=== PATIENT | female | born 1990 | race Caucasian/White ===

== ENCOUNTER 2016-03-26 14:33 | Inpatient (IN) | payer OTHER ==
[2016-03-26] MEDS ORDERED: PANTOPRAZOLE 40 MG/10 ML VIAL IVP STA (14:56)
[2016-03-26] MEDS ORDERED: SODIUM CHLORIDE 0.9% 500 ML IV STA (14:56)
--- NOTE | 2016-03-26 15:01 | ED ---
General Adult HPI - General Chief complaint: Abdominal Pain Stated complaint: abdominal & back pain/racing heart Time Seen by Provider: 03/26/16 14:47 Source: patient, family, RN notes reviewed Mode of arrival: ambulatory Limitations: no limitations - History of Present Illness Initial comments: If complaint and history of present illness a 26-year-old female complaining of epigastric pain goes through to the back. It started last night no nausea vomiting or diarrhea. Tums has not helped up-to-date. No real relationship to eating foods the pain can come with or without food. Denies noticing any change in color of her stool. No alcohol use. - Related Data Home Medications Medication Instructions Recorded Confirmed Cold Med (Unknown) 2 cap PO Q8H PRN 03/26/16 03/26/16 predniSONE 20 mg PO DAILY 03/26/16 03/26/16 Allergies Allergy/AdvReac Type Severity Reaction Status Date / Time ketorolac [From Toradol] Allergy Unknown Verified 03/26/16 15:31 Review of Systems ROS Statement: Those systems with pertinent positive or pertinent negative responses have been documented in the HPI. Review of systems; no complaint of visual acuity changes or headache no steak stiff neck or neck pain. No chest pain or shortness of breath. She has epigastric discomfort stays there and goes more to the left upper quadrant as well as through to the back. No neuro deficits. All systems are reviewed. Past medical problems none. Surgeries tonsils and adenoids 2 C-sections. Family history mother had MS and pancreatitis. Cancers include a grandmother with breast cancer. The patient has ALLERGIES to ketorolac. She states she can take ibuprofen and other nonsteroidals. Denies smoking drinks alcohol occasionally socially. Works as a medical insurance biller. Denies injury. ROS Other: All systems not noted in ROS Statement are negative. Past Medical History Past Medical History: No Reported History History of Any Multi-Drug Resistant Organisms: None Reported Past Surgical History: Section Past Psychological History: No Psychological Hx Reported Smoking Status: Never smoker Past Alcohol Use History: None Reported Past Drug Use History: None Reported General Exam - General Exam Comments Initial Comments: General: The patient is awake and alert, complaining of epigastric pain goes to the back. Occasionally runs around the left side as well. No nausea no vomiting no change in stool no diarrhea. No significant increase in gas. Eye: Pupils are equal, round and reactive to light, extra-ocular movements are intact ; there is normal conjunctiva bilaterally. No signs of icterus. Ears, nose, mouth and throat: There are moist mucous membranes and no oral lesions. Neck: The neck is supple, there is no tenderness , no anterior cervical lymphadenopathy. Cardiovascular: There is a regular rate and rhythm. No murmur, rub or gallop is appreciated. Respiratory: Lungs are clear to auscultation, respirations are non-labored, breath sounds are equal. No wheezes, stridor, rales, or rhonchi. Gastrointestinal: Tender with palpation of the epigastric region. And to the left upper quadrant.. Back: There is no tenderness to palpation in the midline. There is no obvious deformity. No rashes noted. Musculoskeletal: Normal ROM, no tenderness, There is no pedal edema. There is no calf tenderness or swelling. Sensation intact. Neurological: No complaint of or notice of any neuro deficits. Skin: Skin is warm and dry and no rashes or lesions are noted. Limitations: no limitations Course Vital Signs 03/26/16 14:36 Temperature 98.5 F Pulse Rate 74 Respiratory 18 Rate Blood Pressure 146/90 O2 Sat by Pulse 99 Oximetry Medical Decision Making - Medical Decision Making making patient white count 14.5 hemoglobin 11 hematocrit 37.9 amylase lipase normal. Urine no signs of infection test negative. Her potassium is 4.2 with a BUN of 13 creatinine 0.65 the GFR greater than 60. Glucose 76. X-rays of the abdomen were done and reviewed by radiologist findings are a gas is seen and nondistended stomach. Scattered gas is seen in nondistended small bowel loops. Small bowel loops in the left midabdomen may have normal wall thickening consider enteritis at this level. Gas and fecal material is seen in the nondistended colon. There is no visceromegaly. No pneumoperitoneum, or abnormal calcifications appreciated. The lung bases are clear and the osseous structures are intact. Impression; overall nonobstructive bowel gas pattern. Possible left-sided enteritis. Clinical correlation advised. As read by Dr. dunn Reexamination finds the patient with discomfort in epigastric region but no guarding. The patient will have a CT with IV contrast. Radiologist reviewed the CT and his evaluation is evaluation bowel is suboptimal due to lack of enteric contrast. There is no suspicious small or large bowel dilatation identified. Impression no significant acute finding is seen to account for the patient's clinical symptoms. As read by Dr. dunn Is still having epigastric pain that goes through to the back. No specific finding by x-ray or CAT scan or labs. Suspicious for potential gallbladder issues. The patient will be admitted On a clear liquid diet with ultrasound in the morning. Will be admitted to the hospitalist with the general surgical consultation if deemed necessary. - Lab Data Result diagrams: 03/26/16 15:12 03/26/16 15:12 Lab Results 03/26/16 03/26/16 03/26/16 Range/Units 15:12 15:12 15:12 WBC 14.5 H (3.8-10.6) k/uL RBC 4.63 (3.80-5.40) m/uL Hgb 11.4 (11.4-16.0) gm/dL Hct 37.9 (34.0-46.0) % MCV 81.9 (80.0-100.0) fL MCH 24.6 L (25.0-35.0) pg MCHC 30.1 L (31.0-37.0) g/dL RDW 14.1 (11.5-15.5) % Plt Count 436 (150-450) k/uL Neutrophils % 61 % Lymphocytes % 31 % Monocytes % 5 % Eosinophils % 1 % Basophils % 1 % Neutrophils # 8.9 H (1.3-7.7) k/uL Lymphocytes # 4.5 (1.0-4.8) k/uL Monocytes # 0.8 (0-1.0) k/uL Eosinophils # 0.1 (0-0.7) k/uL Basophils # 0.1 (0-0.2) k/uL Sodium 144 (137-145) mmol/L Potassium 4.2 (3.5-5.1) mmol/L Chloride 103 (98-107) mmol/L Carbon Dioxide 29 (22-30) mmol/L Anion Gap 12 mmol/L BUN 13 (7-17) mg/dL Creatinine 0.65 (0.52-1.04) mg/dL Est GFR (MDRD) Af Amer >60 (>60 ml/min/1.73 sqM) Est GFR (MDRD) Non-Af >60 (>60 ml/min/1.73 sqM) Glucose 76 (74-99) mg/dL Plasma Lactic Acid Fernie 1.3 (0.7-2.0) mmol/L Calcium 10.0 (8.4-10.2) mg/dL Total Bilirubin 0.3 (0.2-1.3) mg/dL AST 41 H (14-36) U/L ALT 40 (9-52) U/L Alkaline Phosphatase 62 (38-126) U/L Total Protein 7.7 (6.3-8.2) g/dL Albumin 4.5 (3.5-5.0) g/dL Amylase 56 (30-110) U/L Lipase 156 (23-300) U/L Urine Color Urine Appearance (Clear) Urine pH (5.0-8.0) Ur Specific Abie (1.001-1.035) Urine Protein (Negative) Urine Glucose (UA) (Negative) Urine Ketones (Negative) Urine Blood (Negative) Urine Nitrate (Negative) Urine Bilirubin (Negative) Urine Urobilinogen (<2.0) mg/dL Ur Leukocyte Esterase (Negative) Urine RBC (0-5) /hpf Urine WBC (0-5) /hpf Ur Squamous Epith Cells (0-4) /hpf Urine Mucus (None) /hpf Urine HCG, Qual (Not Detectd) 03/26/16 03/26/16 Range/Units 15:14 15:14 WBC (3.8-10.6) k/uL RBC (3.80-5.40) m/uL Hgb (11.4-16.0) gm/dL Hct (34.0-46.0) % MCV (80.0-100.0) fL MCH (25.0-35.0) pg MCHC (31.0-37.0) g/dL RDW (11.5-15.5) % Plt Count (150-450) k/uL Neutrophils % % Lymphocytes % % Monocytes % % Eosinophils % % Basophils % % Neutrophils # (1.3-7.7) k/uL Lymphocytes # (1.0-4.8) k/uL Monocytes # (0-1.0) k/uL Eosinophils # (0-0.7) k/uL Basophils # (0-0.2) k/uL Sodium (137-145) mmol/L Potassium (3.5-5.1) mmol/L Chloride (98-107) mmol/L Carbon Dioxide (22-30) mmol/L Anion Gap mmol/L BUN (7-17) mg/dL Creatinine (0.52-1.04) mg/dL Est GFR (MDRD) Af Amer (>60 ml/min/1.73 sqM) Est GFR (MDRD) Non-Af (>60 ml/min/1.73 sqM) Glucose (74-99) mg/dL Plasma Lactic Acid Fernie (0.7-2.0) mmol/L Calcium (8.4-10.2) mg/dL Total Bilirubin (0.2-1.3) mg/dL AST (14-36) U/L ALT (9-52) U/L Alkaline Phosphatase (38-126) U/L Total Protein (6.3-8.2) g/dL Albumin (3.5-5.0) g/dL Amylase (30-110) U/L Lipase (23-300) U/L Urine Color Yellow Urine Appearance Cloudy H (Clear) Urine pH 6.0 (5.0-8.0) Ur Specific Abie 1.030 (1.001-1.035) Urine Protein Trace H (Negative) Urine Glucose (UA) Negative (Negative) Urine Ketones Negative (Negative) Urine Blood Negative (Negative) Urine Nitrate Negative (Negative) Urine Bilirubin Negative (Negative) Urine Urobilinogen 2.0 (<2.0) mg/dL Ur Leukocyte Esterase Negative (Negative) Urine RBC 1 (0-5) /hpf Urine WBC 2 (0-5) /hpf Ur Squamous Epith Cells 12 H (0-4) /hpf Urine Mucus Occasional H (None) /hpf Urine HCG, Qual Not Detected (Not Detectd) Disposition Clinical Impression: Abdominal pain Disposition: ADMITTED IP TO THIS HOSP Condition: Stable
[2016-03-26 15:29] LABS: Basophils # (A) 0.1 k/uL (0-0.2); Basophils % (A) 1 %; CH 25.9; CHCM 31.8; Eosinophils # (A) 0.1 k/uL (0-0.7); Eosinophils % (A) 1 %; HCT 37.9 % (34.0-46.0); HDW 2.47; HGB 11.4 gm/dL (11.4-16.0); Luc # (Auto) 0.24; Luc % (Auto) 2; Lymphocytes # (A) 4.5 k/uL (1.0-4.8); Lymphocytes % (A) 31 %; MCH 24.6 pg (25.0-35.0); MCHC 30.1 g/dL (31.0-37.0); MCV 81.9 fL (80.0-100.0); Mean Platelet Volume 7.3; Monocytes # (A) 0.8 k/uL (0-1.0); Monocytes % (A) 5 %; Neutrophils # (A) 8.9 k/uL (1.3-7.7); Neutrophils % (A) 61 %; RBC 4.63 m/uL (3.80-5.40); RDW 14.1 % (11.5-15.5); WBC 14.5 k/uL (3.8-10.6); WBC (Perox) 14.55
[2016-03-26 15:33] LABS: Appearance,Urine Cloudy (Clear); Bilirubin,Urine Negative (Negative); Glucose,Urine (UA) Negative (Negative); Ketones,Urine Negative (Negative); Leukocyte Esterase,Urine Negative (Negative); Mucus,Urine Occasional /hpf; Nitrite,Urine Negative (Negative); Particle Count 6261; Protein,Urine Trace (Negative); RBC,Urine 1 /hpf (0-5); Squamous Epithelial Cell,Urine 12 /hpf (0-4); UA Billing (MACRO vs. MICRO) MICRO; WBC,Urine 2 /hpf (0-5)
[2016-03-26 15:38] LABS: ALT 40 U/L (9-52); AST 41 U/L (14-36); Alkaline Phosphatase 62 U/L (38-126); Amylase 56 U/L (30-110); Anion Gap 12 mmol/L; Blood Urea Nitrogen 13 mg/dL (7-17); Carbon Dioxide 29 mmol/L (22-30); Chloride 103 mmol/L (98-107); Glucose 76 mg/dL (74-99); Non-African American GFR(MDRD) >60 (>60 ml/min/1.73 sqM); Potassium 4.2 mmol/L (3.5-5.1); Sodium 144 mmol/L (137-145); Total Bilirubin 0.3 mg/dL (0.2-1.3); Total Protein 7.7 g/dL (6.3-8.2)
--- NOTE | 2016-03-26 15:57 | XR ---
EXAMINATION TYPE: XR abdomen 2V DATE OF EXAM: 03/26/2016 3:48 PM CLINICAL HISTORY: Epigastric pain into back. TECHNIQUE: 2 upright KUB images of the abdomen are obtained. COMPARISON: None. FINDINGS: Gas is seen in nondistended stomach. Scattered gas is seen in non-distended small bowel lo ops. Small bowel loops in left midabdomen may have abnormal wall thickening consider enteritis at thi s level. Gas and fecal material is seen in non-distended colon. There is no visceromegaly, pneumoper itoneum, or abnormal calcification appreciated. The lung bases are clear and the osseous structures are intact. IMPRESSION: Overall nonobstructive bowel gas pattern. Possible left-sided enteritis. Clinical correl ation advised.
[2016-03-26] MEDS ORDERED: IOHEXOL 350 MG/ML 25 ML BOTTLE (ORAL USE) PO PRN (16:21)
[2016-03-26] MEDS ORDERED: RX INFO: IV CONTRAST WAS GIVEN 1 EACH MISC MISCELLANE PRN (16:21)
[2016-03-26] MEDS ORDERED: MAG HYDROX/AL HYDROX/SIMETH 30 ML, HYOSCYAMINE ELIXIR 10 ML, CIMETIDINE HCL 300 MG PO STA ×3 (16:22)
[2016-03-26] MEDS ORDERED: HYDROmorphone 1 MG/ML 1 ML SYRINGE IVP STA (17:06)
--- NOTE | 2016-03-26 17:38 | CT ---
EXAMINATION TYPE: CT abdomen pelvis w con DATE OF EXAM: 03/26/2016 5:11 PM COMPARISON: NONE HISTORY: Patient complains of epigastric pain. CT DLP: 420mGycm Automated Exposure Control for Dose Reduction was Utilized. CONTRAST: CT scan of the abdomen and pelvis is performed without oral and with IV Contrast, patient injected wi th 100 mL of Omnipaque 300. COMPARISON: None. FINDINGS: LUNG BASES: No significant abnormality is appreciated. LIVER/GB: No significant abnormality is appreciated. PANCREAS: No significant abnormality is seen. SPLEEN: No significant abnormality is seen. ADRENALS: No significant abnormality is seen. KIDNEYS: No significant abnormality is seen. BOWEL: Evaluation bowel is suboptimal due to lack of enteric contrast. There is no suspicious small o r large bowel dilatation identified. UTERUS/ADNEXA: Uterus is normal in size and retroverted in shape. Both ovaries are seen and are tish l in size. No free fluid in pelvis is noted. LYMPH NODES: No greater than 1cm abdominal or pelvic lymph nodes are appreciated. OSSEOUS STRUCTURES: No significant abnormality is seen. OTHER: No significant additional abnormality is seen. IMPRESSION: No significant acute finding is seen to account for patient's clinical symptoms.
[2016-03-26] MEDS ORDERED: NALOXONE 0.4 MG/ML 1 ML VIAL IV PRN (18:20)
[2016-03-26] MEDS ORDERED: ONDANSETRON 4 MG/2 ML VIAL IVP PRN (18:20)
[2016-03-26] MEDS: SODIUM CHLORIDE 0.9% 1,000 ML IV SCH (19:49)
[2016-03-26 20:05] VITALS: BMI 25.6
[2016-03-26] MEDS: HYDROmorphone 1 MG/ML 1 ML SYRINGE IV PRN (20:53)
[2016-03-26] MEDS ORDERED: ALPRAZolam 0.25 MG TAB PO PRN (21:41)
[2016-03-27] MEDS: HYDROcodone/APAP 5-325MG 1 EACH TAB PO PRN ×3 (01:58→18:10)
[2016-03-27] MEDS: SODIUM CHLORIDE 0.9% 1,000 ML IV SCH ×3 (02:51→18:51)
[2016-03-27 07:49] LABS: ALT 32 U/L (9-52); AST 31 U/L (14-36); Alkaline Phosphatase 53 U/L (38-126); Anion Gap 7 mmol/L; Blood Urea Nitrogen 9 mg/dL (7-17); Calcium 8.7 mg/dL (8.4-10.2); Carbon Dioxide 30 mmol/L (22-30); Chloride 104 mmol/L (98-107); Glucose 77 mg/dL (74-99); Non-African American GFR(MDRD) >60 (>60 ml/min/1.73 sqM); Potassium 4.6 mmol/L (3.5-5.1); Sodium 141 mmol/L (137-145); Total Bilirubin 0.5 mg/dL (0.2-1.3); Total Protein 6.5 g/dL (6.3-8.2)
[2016-03-27 07:51] LABS: Basophils % (A) 0 %; CHCM 30.6; Eosinophils # (A) 0.1 k/uL (0-0.7); Eosinophils % (A) 1 %; HCT 34.6 % (34.0-46.0); HDW 2.36; HGB 10.6 gm/dL (11.4-16.0); Hypochromasia Slight; Luc # (Auto) 0.16; Luc % (Auto) 2; Lymphocytes # (A) 3.2 k/uL (1.0-4.8); Lymphocytes % (A) 39 %; MCH 25.3 pg (25.0-35.0); MCHC 30.7 g/dL (31.0-37.0); MCV 82.2 fL (80.0-100.0); Mean Platelet Volume 6.6; Monocytes # (A) 0.4 k/uL (0-1.0); Monocytes % (A) 4 %; Neutrophils # (A) 4.4 k/uL (1.3-7.7); Neutrophils % (A) 53 %; RBC 4.21 m/uL (3.80-5.40); RDW 13.8 % (11.5-15.5); WBC 8.2 k/uL (3.8-10.6); WBC (Perox) 8.79
--- NOTE | 2016-03-27 08:36 | US ---
EXAMINATION TYPE: US abdomen limited DATE OF EXAM: 03/27/2016 8:19 AM COMPARISON: CT on PACS from yesterday. CLINICAL HISTO RY: epigastric pain radiating to back x 2 days, nausea. EXAM MEASUREMENTS: Liver Length: 11.9cm Gallbladder Wall: 0.2cm CBD: 0.5cm Right Kidney: 11.7 x 4.5 x 4.2cm RUQ ABDOMINAL ULTRASOUND ANATOMY: Pancreas: within normal limits Liver: within normal limits Gallbladder: within normal limits Evidence for sonographic Orozco's sign: No CBD: within normal limits Right Kidney: within normal limits IMPRESSION: No gallstones or ultrasound evidence for acute cholecystitis. Unremarkable study. Normal Values: Liver Length: < 16cm wnl, 17-18cm upper limits, >18cm enlarged Renal Length = 9 - 12cm GB Wall: < 0.3cm CBD: < 0.6cm or < 1.0cm post cholecystectomy
[2016-03-27] MEDS: PANTOPRAZOLE 40 MG/10 ML VIAL IV SCH (09:02)
[2016-03-27] MEDS: HYDROmorphone 1 MG/ML 1 ML SYRINGE IV PRN ×2 (09:13→15:43)
--- NOTE | 2016-03-27 11:38 | P.GSCN ---
History of Present Illness Consult date: 03/27/16 Reason for Consult: EPigastric pain History of present illness: Patient presents with progressively worsening severe epigastric pain that is stabbing and radiating to the back. His no history of previous history of heartburn or reflux. She does take Tylenol. She's not had any problems with reflux apart from . She's not had any hematemesis hematochezia melena or weight loss. No urinary complaints. There is no abdominal pain in the right upper quadrant. There's no jaundice or icterus regular chills. There is no problems with diarrhea or constipation. His no history of hematochezia hematemesis or melena. Review of Systems - Constitutional Reports anorexia, Denies fever, Denies weight loss - EENT Eyes: denies blurred vision Ears, nose, mouth and throat: Denies dysphagia - Cardiovascular Denies chest pain, Denies shortness of breath - Respiratory Denies cough, Denies excessive sputum, Denies hemoptysis - Gastrointestinal Reports abdominal pain, Reports bloating, Reports loss of appetite, Reports vomiting, Denies belching, Denies BRBPR, Denies change in bowel habits, Denies coffee ground emesis, Denies constipation, Denies diarrhea, Denies dyspepsia, Denies early satiety, Denies excessive gas, Denies heartburn, Denies hematemesis , Denies hematochezia, Denies indigestion, Denies jaundice Past Medical History Past Medical History: No Reported History History of Any Multi-Drug Resistant Organisms: None Reported Past Surgical History: Section Past Anesthesia/Blood Transfusion Reactions: No Reported Reaction Past Psychological History: No Psychological Hx Reported Smoking Status: Never smoker Past Alcohol Use History: None Reported Past Drug Use History: None Reported - Past Family History Mother Family Medical History: Hypertension, Neurologic Disorder Additional Family Medical History / Comment(s): Multiple sclerosis, pancreatitis , HTN Medications and Allergies Home Medications Medication Instructions Recorded Confirmed Type Cold Med (Unknown) 2 cap PO Q8H PRN 03/26/16 03/26/16 History predniSONE 20 mg PO DAILY 03/26/16 03/26/16 History Allergies Allergy/AdvReac Type Severity Reaction Status Date / Time ketorolac [From Toradol] Allergy Anaphylaxis Verified 03/26/16 20:06 Surgical - Exam Vital Signs Temp Pulse Resp BP Pulse Ox 98.5 F 74 18 146/90 99 03/26/16 14:36 03/26/16 14:36 03/26/16 14:36 03/26/16 14:36 03/26/16 14:36 - General well developed, well nourished, moderate distress - Eyes PERRL, normal ocular movement, no icteric, no deviation, no loss of movement - ENT normal pinna, normal nares, normal mucosa - Respiratory normal expansion, normal respiratory effort - Cardiovascular Rhythm: regular - Abdomen Patient is tender epigastrium without any guarding or rebound is no organomegaly or herniation. Abdomen: soft, tender - Integumentary no rash, no abnormal pigmentation - Musculoskeletal normal gait, normal posture - Psychiatric oriented to time, oriented to person, oriented to place, speech is normal, memory intact Results - Labs 03/27/16 07:05 03/27/16 07:05 Abnormal Lab Results - Last 24 Hours (Table) 03/27/16 03/27/16 Range/Units 06:54 07:05 Hgb 10.6 L (11.4-16.0) gm/dL MCHC 30.7 L (31.0-37.0) g/dL Urine Opiates Screen Detected H (NotDetected) Diabetes panel 03/27/16 Range/Units 07:05 Sodium 141 (137-145) mmol/L Potassium 4.6 (3.5-5.1) mmol/L Chloride 104 (98-107) mmol/L Carbon Dioxide 30 (22-30) mmol/L BUN 9 (7-17) mg/dL Creatinine 0.68 (0.52-1.04) mg/dL Glucose 77 (74-99) mg/dL Calcium 8.7 (8.4-10.2) mg/dL AST 31 (14-36) U/L ALT 32 (9-52) U/L Alkaline Phosphatase 53 (38-126) U/L Total Protein 6.5 (6.3-8.2) g/dL Albumin 3.6 (3.5-5.0) g/dL Calcium panel 03/27/16 Range/Units 07:05 Calcium 8.7 (8.4-10.2) mg/dL Albumin 3.6 (3.5-5.0) g/dL Pituitary panel 03/27/16 Range/Units 07:05 Sodium 141 (137-145) mmol/L Potassium 4.6 (3.5-5.1) mmol/L Chloride 104 (98-107) mmol/L Carbon Dioxide 30 (22-30) mmol/L BUN 9 (7-17) mg/dL Creatinine 0.68 (0.52-1.04) mg/dL Glucose 77 (74-99) mg/dL Calcium 8.7 (8.4-10.2) mg/dL Adrenal panel 03/27/16 Range/Units 07:05 Sodium 141 (137-145) mmol/L Potassium 4.6 (3.5-5.1) mmol/L Chloride 104 (98-107) mmol/L Carbon Dioxide 30 (22-30) mmol/L BUN 9 (7-17) mg/dL Creatinine 0.68 (0.52-1.04) mg/dL Glucose 77 (74-99) mg/dL Calcium 8.7 (8.4-10.2) mg/dL Total Bilirubin 0.5 (0.2-1.3) mg/dL AST 31 (14-36) U/L ALT 32 (9-52) U/L Alkaline Phosphatase 53 (38-126) U/L Total Protein 6.5 (6.3-8.2) g/dL Albumin 3.6 (3.5-5.0) g/dL - Imaging CT scan - abdomen: report reviewed, image reviewed CT scan - chest: report reviewed, image reviewed US - abdomen: report reviewed, image reviewed (Patient has essentially normal computed tomography scan of the abdomen and pelvis and ultrasound. There is no gallbladder wall thickening pericholecystic fluid gallstones.) Assessment and Plan (1) Abdominal pain Narrative/Plan: Patient 26-year-old female with severe epigastric pain radiating to the back. Its associated with nausea vomiting. Ultrasound is essentially normal computed tomography scan of the abdomen essentially normal white count is normal. On exam she is tender in the epigastrium and in the right upper quadrant. At this time my differential includes peptic ulcer disease, dysfunction and gastritis. Recommended a GI consult for further evaluation for possible gastritis and peptic ulcer disease. I do not believe it is acute cholecystitis primarily based upon the normalized what white count and normal ultrasound. If however EGD per GI is negative then I may proceed with a HIDA scan but at this time I do not suspect cholecystitis. Status: Acute
--- NOTE | 2016-03-27 11:47 | HP ---
DATE OF ADMISSION: Chief complaint is abdominal pain. HISTORY OF PRESENT ILLNESS: This 26-year-old woman with a past medical history of persistent nausea and medical issues being followed by Dr. Cooper in the outpatient setting has presented to [facility] with complaints of abdominal pain. The patient has severe epigastric pain radiating to her back with nausea and vomiting appears to be not obtunded in intensity because of severe of pain. Patient admitted for further evaluation and treatment. Evaluation showed WBC elevated to 14.5, is normal. UA was noted. Otherwise, patient also had AST elevated to 41, the abdominal and pelvis CAT scan was done, which showed no significant abnormality. X-ray of the abdomen was also noted which showed nonobstructive bowel gas pattern and left sided enteritis was considered. There is no history of fever, chills or rigors. No history of headache, loss of consciousness or seizure. PAST MEDICAL HISTORY: No significant cardiac, pulmonary or GI disease. Medications are cold medications and prednisone 20 mg daily. Allergies to KETOROLAC. FAMILY HISTORY: History of hypertension, neurological disorder, multiple sclerosis, pancreatitis and hypertension. SOCIAL HISTORY: No history of smoking and no history of alcohol intake. Patient works as a [employer] as on a p.r.n. basis on [employer]. REVIEW OF SYSTEMS: ENT: No diminished hearing, no diminished vision. CARDIOVASCULAR: No angina or palpitations. RESPIRATORY SYSTEM: No cough. GI: As mentioned earlier. : No dysuria. NERVOUS SYSTEM: No numbness or weakness. ALLERGY/IMMUNOLOGY: No asthma or hayfever. MUSCULOSKELETAL: As mentioned earlier. HEMATOLOGY: No history of anemia. ENDOCRINE: No history of diabetes or hypothyroidism. CONSTITUTIONAL: As mentioned earlier. DERMATOLOGY: Negative. RHEUMATOLOGY: Negative. PSYCHIATRY: As mentioned earlier. PHYSICAL EXAM: Patient is alert and oriented x3. Pulse 68, blood pressure 119/70, respirations 21, temperature is 97 degrees, pulse ox 100% on room air. HEENT: Conjunctivae normal, oral mucosa moist. NECK: No jugular venous distension. No lymph node enlargement. CARDIOVASCULAR SYSTEM: S1, S2, muffled. RESPIRATORY: Breath sounds diminished at the bases, no rhonchi, no crackles. ABDOMEN: Soft, mild diffuse tenderness in the epigastrium present. No guarding, no rigidity, no mass palpable. Bowel sounds present. No ascites. No mass palpable. EXTREMITIES: Legs no edema, no swelling. NERVOUS SYSTEM: Higher functions as mentioned. Moves all 4 limbs, no focal motor deficits. LYMPHATICS: No lymph node enlargement in the neck, groin or axillae. SKIN: No ulcer, rash or bleeding. LABS: WBC is 14.8, hemoglobin is 11.4, AST is 41. ASSESSMENT: 1. Acute abdominal pain, possible acute gastritis, rule out cholelithiasis. 2. Increased WBC, possibly reactive in nature. RECOMMENDATION: In this 26-year-old woman who presented with multiple complex medical issues, will monitor the patient closely. Continue with the current medications and symptomatic treatment. I would recommend urine culture and as well as continue to monitor. Symptomatic treatment will be provided, Protonix. I would also recommend a consultation with Dr. Don and continue to monitor. Other labs will be ordered. DVT prophylaxis. Further recommendations to follow. MTDD
[2016-03-28] MEDS: SODIUM CHLORIDE 0.9% 1,000 ML IV SCH ×4 (03:00→20:21)
[2016-03-28] MEDS: HYDROmorphone 1 MG/ML 1 ML SYRINGE IV PRN ×5 (03:00→20:09)
[2016-03-28] MEDS: PANTOPRAZOLE 40 MG/10 ML VIAL IV SCH (08:00)
--- NOTE | 2016-03-28 10:24 | P.PN ---
<Tennille Blackman M - Last Filed: 03/28/16 13:39> Subjective 26-year-old female being seen with the attending at the bedside this morning. The plan of care was discussed. Patient is scheduled this morning for an EGD per GI as part of the workup for persistent severe epigastric pain radiating to the right upper back.. Patient reports a sensation of nausea but no active emesis. Patient denies any burning on urination frequency urgency. Patient denies any change in bowel habits no loose stools or constipation.. Patient is being seen by surgical service at the request of the attending for workup for severe epigastric pain. Patient did have a CAT scan of the abdomen pelvis and ultrasound. These were reviewed by the surgical service. This shows no evidence of acute findings. No gallbladder wall thickening noted. Patient has remained afebrile with no white count(noted on March 27.2 Patient just returned from the EGD with biopsies as part of workup for epigastric pain. The EGD was done by GI service. There were no acute findings. No evidence for peptic ulcer disease. Recommendations were to advance patient's diet patient could be discharged home with the plan the patient be followed up in the outpatient setting the findings were consistent with gastritis but there was no bleeding or gastric outlet obstruction. Objective - Vital Signs Vital signs: Vital Signs Temp 97.0 F L 03/28/16 07:15 Pulse 87 03/28/16 07:15 Resp 16 03/28/16 07:15 BP 115/69 03/28/16 07:15 Pulse Ox 99 03/28/16 07:15 Intake & Output 03/27/16 03/28/16 03/28/16 18:59 06:59 18:59 Intake Total 1000 0 Balance 1000 0 Intake: Intake, IV Titration 1000 Amount Sodium Chloride 0.9% 1, 1000 000 ml @ 125 mls/hr IV . Q8H CARLOS ALBERTO Rx#:[id number] Oral 0 Other: # Voids 1 2 - Exam Physical exam 26-year-old female sitting up in bed does not appear in acute distress. Is aware of the plan of care. Continues to report having severe epigastric pain radiating to the right side points to the epigastric area as to the reference point Lungs essentially clear with adequate air movement on room air sats greater than 95 percent Heart S1-S2 audible regular Abdomen slight tenderness to the epigastric area soft not distended no reports of nausea vomiting no difficulty in urinating no frequent stooling or constipation Extremities no evidence of calf tenderness no edema noted - Labs CBC & Chem 7: 03/27/16 07:05 03/27/16 07:05 Assessment and Plan Plan: Impression Present on admission severe epigastric pain radiating to the right upper quadrant unclear etiology rule out peptic ulcer disease, gastritis Present on admission leukocytosis suspect reactive status post EGD gastritis no evidence of peptic ulcer disease Plan Follow up on the results of the EGD if no acute findings recommend proceeding with a HIDA scan to evaluate the right upper quadrant pain Continue with the protonix as ordered 40 twice a day DVT and GI prophylaxis IV hydration Pain control surgical recommendations patient could be discharged home followed up in the outpatient setting follow-up Dr. buenrostro in outpatient setting The above dictated assessment and findings were discussed with Dr. buenrostro Impression and the plan of care have been dictated as directed. Tennille Blackman nurse practitioner acting as a scribe for dr buenrostro Time with Patient: Greater than 30 <Tressa Buenrostro W - Last Filed: 03/29/16 11:14> Objective - Vital Signs Vital signs: Vital Signs Temp 98.2 F 03/29/16 07:30 Pulse 74 03/29/16 07:30 Resp 16 03/29/16 07:30 BP 113/67 03/29/16 07:30 Pulse Ox 96 03/29/16 07:30 Intake & Output 03/28/16 03/29/16 03/29/16 18:59 06:59 18:59 Intake Total 300 200 Balance 300 200 Intake: IV 100 Oral 200 200 Other: Voiding Method Toilet # Voids 1 1 1 - Labs CBC & Chem 7: 03/29/16 06:52 03/29/16 06:52 Labs: Abnormal Lab Results - Last 24 Hours (Table) 03/29/16 03/29/16 Range/Units 06:52 06:52 Hgb 10.5 L (11.4-16.0) gm/dL Hct 33.8 L (34.0-46.0) % BUN 6 L (7-17) mg/dL Total Protein 6.1 L (6.3-8.2) g/dL Assessment and Plan (1) Abdominal pain Status: Acute Plan: Patient i=has RUQ pain that is not resolving. The HIDA scan is showing biliary dyskinesia. I have recommended a laparoscopic cholecystectomy. The risks and benefits were discussed she understands and is willing to proceed.(KELSEY)
[2016-03-28] MEDS ORDERED: IV FLUID CONTINUATION 900 ML IV ONE (11:59)
[2016-03-28] MEDS ORDERED: LIDOCAINE 1% INJ 10MG/ML (20 ML MDV) ONE (12:02)
[2016-03-28] MEDS ORDERED: PROPOFOL 10 MG/ML 20 ML VIAL IV ONE (12:02)
--- NOTE | 2016-03-28 12:22 | P.CONS ---
History of Present Illness - Reason for Consult Consult date: 03/27/16 Epigastric pain - History of Present Illness The patient is a 26-year old female who presented with recent onset off progressively worsening severe epigastric pain that is described as stabbing and radiating to the back. There is no history of previous history of heartburn or reflux. She does take Tylenol. She has not had any problems with reflux apart from . She had no hematemesis, hematochezia, melena or weight loss. No urinary complaints. There is no abdominal pain in the right upper quadrant. There is no jaundice or icterus regular chills. There is no problems with diarrhea or constipation. His no history of hematochezia hematemesis or melena. Review of Systems Constitutional: Denies fever, chills or unintentional weight loss Neurologic: No headaches, double vision or other neurologic complaints Genitourinary: No hematuria, dysuria or frequency Gastritis and: See present illness above Endocrine: No history of diabetes or thyroid disease Muscular skeletal: No joint complaints or swelling Skin: No rashes Psychiatric: No anxiety or depression Past Medical History Past Medical History: No Reported History History of Any Multi-Drug Resistant Organisms: None Reported Past Surgical History: Section Past Anesthesia/Blood Transfusion Reactions: No Reported Reaction Past Psychological History: No Psychological Hx Reported Smoking Status: Never smoker Past Alcohol Use History: None Reported Past Drug Use History: None Reported - Past Family History Mother Family Medical History: Hypertension, Neurologic Disorder Additional Family Medical History / Comment(s): Multiple sclerosis, pancreatitis , HTN Medications and Allergies Home Medications Medication Instructions Recorded Confirmed Type Cold Med (Unknown) 2 cap PO Q8H PRN 03/26/16 03/26/16 History predniSONE 20 mg PO DAILY 03/26/16 03/26/16 History Allergies Allergy/AdvReac Type Severity Reaction Status Date / Time ketorolac [From Toradol] Allergy Anaphylaxis Verified 03/26/16 20:06 Physical Exam Vitals: Vital Signs Temp Pulse Resp BP Pulse Ox 03/27/16 18:58 98.6 F 82 19 115/61 100 Intake and Output 03/27/16 03/27/16 03/28/16 14:59 22:59 06:59 Other: # Voids 1 Gen.: Appears stated age very pleasant, in no acute distress Head and neck: Normocephalic and atraumatic, conjunctivae pink and sclerae not icteric, mucous membranes moist and pink. No masses in the neck or clinical shifts. No adenopathy or thyromegaly Lungs: Clear to auscultation with no dullness to percussion Heart: Regular with no abnormal sounds, murmurs, gallops or friction rubs Abdomen: Soft, with epigastric tenderness but no organomegalies. Bowel sounds present Activities: No clubbing, cyanosis or edema Neurologic: Alert and oriented 3. Cranial nerves grossly intact, no gross sensory or motor abnormalities Results CBC & Chem 7: 03/27/16 07:05 03/27/16 07:05 Assessment and Plan Plan: 26-year-old female with unexplained epigastric pain radiating to her back. Negative workup so far. We will proceed with upper endoscopy tomorrow to rule out peptic ulcer disease. Further plans based on her course and her findings.
--- NOTE | 2016-03-28 12:40 | P.PCN ---
Date of Procedure: 03/28/16 Procedure(s) Performed: Procedure: Esophagogastroduodenoscopy and biopsy. Preoperative diagnosis: Epigastric pain. Postoperative diagnosis: Antral gastritis with small linear ulceration in the immediate prepyloric area with no bleeding or gastric outlet obstruction. Preparation and sedation: Were provided by anesthesia. Brief clinical history: The patient is a 26-year-old female who was admitted to the hospital with recent onset of epigastric pain with radiation to her back. There was no significant abnormalities found on her blood work and imaging studies. This evaluation is to assess for peptic ulcer disease. The details are summarized in the history and physical and dictated consultations I progress Notes. Procedure: With the patient on her left lateral decubitus position and after informed consent and adequate sedation, I passed the Olympus-GIF 160 video upper endoscope through the cricopharyngeus down the esophagus. GE junction was around 40 cm from the incisors and there was no definite hiatal hernia. The esophagus did not show any erosions, ulcers, strictures or Escobar's esophagus. The endoscope was then passed into the stomach which was insufflated with air and inspected in detail including the retroflex view in the cardia. There was abnormalities noted in the antrum with erythema and submucosal hemorrhages and there was a linear ulceration in the prepyloric area consistent with gastritis but there were no bleeding or gastric outlet obstruction. Pyloric channel did not show any ulcers. Duodenal bulb, post bulbar area and descending duodenum showed minimal erythema. I obtained multiple biopsies from the duodenum, antrum and esophagus then the endoscope was withdrawn. The patient tolerated the procedure well. Plan: I discussed the findings with the patient and her . Will continue medical therapy with Protonix while await the biopsy results and continue symptomatic treatment and consider advancing her diet based on her course. Further plans can be made based on her course and biopsy results. I will discuss with you and follow with you with interest.
--- NOTE | 2016-03-28 14:50 | PN ---
DATE OF SERVICE: 03/27/2016 This 26-year-old woman was admitted with abdominal pain and discomfort, is being closely monitored. The patient seen complaining of abdominal pain, chest and epigastrium, going through the back. is following the closely, recommended gastrointestinal evaluation. Abdominal ultrasound and abdominal/pelvis CAT scan did not show acute abnormality. No chest pain, no palpitation, no fever. Dr. Benoit is following the patient. On exam, alert and oriented x3, pulse 67, blood pressure 113/78, respirations 16, temperature 97.8, pulse ox 100% on room air. Conjunctivae normal. NECK: No thyroid enlargement. CARDIAC: S1, S2 muffled. LUNGS: Decreased breath sounds at the bases. No rhonchi, no crackles. ABDOMEN: Soft. Mild diffuse tenderness in the epigastrium. NERVOUS SYSTEM: No focal deficits. LABS: WBC 8, hemoglobin 10.6. CMP within normal limits. ASSESSMENT: 1. Acute abdominal pain, possible acute gastritis, rule out peptic ulcer disease. 2. Rule out cholelithiasis. 3. Increased WBC, possibly reactive in nature. 4. Recent upper respiratory infection. RECOMMENDATIONS AND DISCUSSION: In this 26-year-old woman presented with multiple complex medical issues, we will monitor the patient closely, continue current medication, continue current therapy. Will consult Dr. Benoit for possible endoscopes. Further recommendations to follow. MAYTE
--- NOTE | 2016-03-28 20:17 | NM ---
EXAMINATION TYPE: NM hepatobiliary w CCK DATE OF EXAM: 03/28/2016 7:53 PM COMPARISON: NONE HISTORY: Pain TECHNIQUE: After the intravenous administration of 5.5 mCi Tc 99m Mebrofenin hepatobiliary scintigrap hy is performed. Immediate images post injection. FINDINGS: There is satisfactory initial accumulation of tracer by the liver. The gallbladder is visualized wit hin 18 minutes. The small bowel activity is noted within 48 minutes. At one hour CCK was administer ed, patient was injected with 1.3 mcg of Kinevac, and gallbladder ejection fraction is calculated at 30% .Therefore there is no scintigraphic evidence of cystic or common bile duct obstruction to sugges t acute cholecystitis. IMPRESSION: Diminished gallbladder ejection fraction which may reflect chronic cholecystitis and/or b iliary dyskinesia.
[2016-03-29] MEDS: HYDROmorphone 1 MG/ML 1 ML SYRINGE IV PRN ×4 (01:35→23:35)
[2016-03-29] MEDS: SODIUM CHLORIDE 0.9% 1,000 ML IV SCH ×3 (04:02→23:34)
[2016-03-29 07:31] LABS: Basophils % (A) 0 %; CH 25.2; Eosinophils # (A) 0.3 k/uL (0-0.7); Eosinophils % (A) 3 %; HCT 33.8 % (34.0-46.0); HDW 2.38; HGB 10.5 gm/dL (11.4-16.0); Hypochromasia Slight; Luc # (Auto) 0.14; Luc % (Auto) 2; Lymphocytes # (A) 2.5 k/uL (1.0-4.8); Lymphocytes % (A) 30 %; MCH 25.3 pg (25.0-35.0); MCV 81.5 fL (80.0-100.0); Mean Platelet Volume 6.2; Monocytes # (A) 0.4 k/uL (0-1.0); Monocytes % (A) 5 %; Neutrophils # (A) 4.9 k/uL (1.3-7.7); Neutrophils % (A) 60 %; RBC 4.15 m/uL (3.80-5.40); RDW 13.5 % (11.5-15.5); WBC 8.2 k/uL (3.8-10.6); WBC (Perox) 8.71
[2016-03-29 07:36] LABS: ALT 33 U/L (9-52); AST 29 U/L (14-36); Alkaline Phosphatase 54 U/L (38-126); Anion Gap 9 mmol/L; Blood Urea Nitrogen 6 mg/dL (7-17); Calcium 8.9 mg/dL (8.4-10.2); Carbon Dioxide 27 mmol/L (22-30); Chloride 104 mmol/L (98-107); Glucose 83 mg/dL (74-99); Non-African American GFR(MDRD) >60 (>60 ml/min/1.73 sqM); Potassium 4.1 mmol/L (3.5-5.1); Sodium 140 mmol/L (137-145); Total Bilirubin 0.5 mg/dL (0.2-1.3); Total Protein 6.1 g/dL (6.3-8.2)
--- NOTE | 2016-03-29 08:18 | DS ---
DATE OF ADMISSION: 03/27/2016 DATE OF DISCHARGE: DATE OF SERVICE: 03/28/2016 FINAL DIAGNOSES: 1. Acute abdominal pain, possibly acute gastritis. 2. Status post esophagogastroduodenoscopy. 3. Increased WBC, possibly reactive, improved. 4. Anemia, mild, possibly anemia of possibly nutritional, normocytic. DISCHARGE DISPOSITION: The patient will be discharged in stable condition with guarded prognosis. Discharge cleared by Gastroenterology and Surgery. HISTORY OF PRESENT ILLNESS: This 25-year-old woman with past medical history of multiple medical problems followed by Dr. Cooper in the outpatient setting was admitted with abdominal pain. The patient was in the CAT scan and as well as ultrasound did not acute abnormality. The patient was seen by Dr. Don and Dr. Beniot. Dr. Benoit performed an EGD which showed antral gastritis. Small linear ulceration in the immediate prepyloric area. The patient will be discharged in stable condition with guarded prognosis. 1. Diet is cardiac, soft bland. 2. Activity limited until follow-up. 3. Follow up with Dr. Cooper in 2 to 3 days. 4. CBC, BMP with follow-up. 5. Follow up with Surgery and Gastroenterology as recommended. MEDICATIONS: 1. Protonix 40 mg p.o. b.i.d. 2. Carafate 1 gram before meals and at bedtime. MTDD
[2016-03-29] MEDS: PANTOPRAZOLE 40 MG/10 ML VIAL IV SCH (08:51)
[2016-03-29] MEDS: HYDROcodone/APAP 5-325MG 1 EACH TAB PO PRN (10:03)
--- NOTE | 2016-03-29 10:51 | P.PN ---
Subjective 26-year-old female being seen this morning on rounds currently is resting in bed. Patient continues to report having right upper quadrant pain. Patient states that warm compresses to the affected area seemed to help. Patient reports a sensation of nausea no active emesis. Patient did have a HIDA scan yesterday afternoon it did show diminished gallbladder ejection fraction calculated at 30% which may reflect chronic cholecystitis and/or biliary dyskinesis Patient did undergo an EGD with biopsies per Dr. Galan on the which did show antral gastritis with a small linear ulceration in the immediat the prepyloric area with no bleeding or gastric outlet obstruction Objective - Vital Signs Vital signs: Vital Signs Temp 98.2 F 03/29/16 07:30 Pulse 74 03/29/16 07:30 Resp 16 03/29/16 07:30 BP 113/67 03/29/16 07:30 Pulse Ox 96 03/29/16 07:30 Intake & Output 03/28/16 03/29/16 03/29/16 18:59 06:59 18:59 Intake Total 300 200 Balance 300 200 Intake: IV 100 Oral 200 200 Other: Voiding Method Toilet # Voids 1 1 1 - Exam Physical exam 26-year-old female resting in bed warm compress to the right upper quadrant pleasant cooperative oriented 3 appears in no acute distress just medicated for pain control Lungs essentially clear adequate air movement Heart S1-S2 audible regular no murmur abdomen slight tenderness to the right upper quadrant not distended all tones present 4 urinating no difficulty no frequent stooling no active emesis Extremities no edema noted - Labs CBC & Chem 7: 03/29/16 06:52 03/29/16 06:52 Labs: Abnormal Lab Results - Last 24 Hours (Table) 03/29/16 03/29/16 Range/Units 06:52 06:52 Hgb 10.5 L (11.4-16.0) gm/dL Hct 33.8 L (34.0-46.0) % BUN 6 L (7-17) mg/dL Total Protein 6.1 L (6.3-8.2) g/dL Assessment and Plan Plan: Impression Present on admission severe epigastric pain radiating to the right upper quadrant unclear etiology rule out peptic ulcer disease, gastritis Present on admission leukocytosis suspect reactive status post EGD March 28 gastritis no evidence of peptic ulcer disease antral gastritis with a small linear ulceration in the immediate prepyloric area with no bleeding or gastric outlet obstruction HIDA scan March 28 diminished gallbladder ejection fraction calculated at 30% may reflect chronic cholecystitis or biliary dyskinesis Plan Patient is to be scheduled for a lap cholecystectomy today by surgical service for the abnormal HIDA scan Continue with the protonix as ordered 40 twice a day DVT and GI prophylaxis IV hydration Pain control The above dictated assessment and findings were discussed with Dr. buenrostro Impression and the plan of care have been dictated as directed. Tennille Blackman nurse practitioner acting as a scribe for dr buenrostro
[2016-03-29] MEDS ORDERED: IV FLUID CONTINUATION 850 ML IV ONE (12:41)
[2016-03-29] MEDS: ONDANSETRON 4 MG/2 ML VIAL IVP ONE ×2 (12:59→14:56)
[2016-03-29] MEDS ORDERED: DEXAMETHASONE SOD PHOSPHATE 4 MG/ML 1 ML VIAL IVP ONE (13:00)
[2016-03-29] MEDS ORDERED: ENOXAPARIN 40 MG/0.4 ML SYRINGE SQ ONE (13:31)
[2016-03-29] MEDS ORDERED: LIDOCAINE 1% INJ 10MG/ML (20 ML MDV) ONE (13:44)
[2016-03-29] MEDS ORDERED: ROCURONIUM BROMIDE 10 MG/ML 10 ML VIAL IV ONE (13:44)
[2016-03-29] MEDS ORDERED: ceFAZolin 1,000 MG VIAL ONE (13:44)
[2016-03-29] MEDS ORDERED: GLYCOPYRROLATE 0.2 MG/ML 2 ML VIAL ONE (13:44)
[2016-03-29] MEDS ORDERED: LACTATED RINGERS 1,000 ML BAG IV ONE (13:44)
[2016-03-29] MEDS ORDERED: SUCCINYLCHOLINE CHLORIDE 100 MG/5 ML SYR IV ONE (13:44)
[2016-03-29] MEDS ORDERED: HYDROmorphone (PF) 1 MG/ML ONE (13:44)
[2016-03-29] MEDS ORDERED: MIDAZOLAM 2 MG/2 ML VIAL ONE (13:44)
[2016-03-29] MEDS ORDERED: NEOSTIGMINE 1 MG/ML 10 ML VIAL ONE (13:44)
[2016-03-29] MEDS ORDERED: fentaNYL (PF) 50 MCG/ML 2 ML AMP ONE (13:44)
[2016-03-29] MEDS: ceFAZolin 2 GM in SODIUM CHLORIDE 0.9% 100 ML IVPB ONE ×2 (13:51→16:12)
[2016-03-29] MEDS ORDERED: BUPIVACAIN-EPI 0.25%-1:200,000 30 ML VIAL SQ ONE ×2 (14:07)
[2016-03-29] MEDS ORDERED: LACTATED RINGERS 1,000 ML IV ONE ×2 (14:27→14:58)
--- NOTE | 2016-03-29 14:45 | P.OP ---
Date of Procedure: 03/29/16 Preoperative Diagnosis: Epigastric pain Postoperative Diagnosis: Acute cholecystitis Procedure(s) Performed: Laparoscopic cholecystectomy Anesthesia: JUANY Surgeon: Tressa Don Pathology: other Condition: stable Disposition: PACU Operative Findings: Acutely inflamed gallbladder Description of Procedure: The patient is a 26-year-old female who presented with epigastric and upper abdominal pain which localized in the right upper quadrant was tender with guarding in the right upper quadrant normal white count normal ultrasound and a HIDA scan revealing bili dyskinesia. Clinical diagnosis of acute cholecystitis was made. The risks benefits and possible complications of the procedure were discussed in detail and informed consent was obtained. Patient was identified in the preop operating holding area questions were answered and she was taken back to the operating room where she was placed in the supine position. She was given general anesthesia with endotracheal intubation followed by the placement of an orogastric tube and an appropriate timeout was called the indication procedure ALLERGIES medications from her prophylaxis were all discussed. Abdomen is prepped and draped in the usual sterile surgical fashion subumbilical region was infiltrated with quarter percent with local anesthesia and incision was made with 11 blade and Veress needle was introduced and abdomen was insufflated to 15 mmHg. Once that was done a 10 mm epigastric port and two 5 mm right upper quadrant ports were placed.the gallbladder was retracted cephalad and superiorly.The fundus was retracted so as to make the Calot's triangle more visible. There were inflammatory peritoneal adhesions and the gallbladder was distended. The adhesions were taken down with the help of blunt dissection and using some electrocautery, skeletonizing the cystic duct and the multiple branches of the cystic artery. Cystic duct was clipped proximally and distally followed by clipping of the branches of the cystic artery following which they were transected sharply with the help of the suhas. The gallbladder was then taken off the gallbladder fossa with the help of electrocautery and placed in an Endo Catch bag and removed through the 10 m port site after dilating the port site with a Carla. The port was replaced and the gallbladder fossa was inspected and hemostasis was secured with the help of electrocautery the abdomen was thoroughly irrigated and sucked dry. [place] were noted to be in the appropriate position at this time to take procedure was terminated. the 10 mm port was removed and the port site was closed with the help of a Dannie Rajan using 0 Vicryl.The Gas was shut off and all the 5 mm ports were removed. The abdomen was thoroughly desufflated. The remaining local anesthesia was infiltrated into the incisions and the incisions were closed with the help of 4-0 Monocryl and dermabond was applies. The patient was extubated and taken to recovery room in stable condition . There were no complications.
[2016-03-29] MEDS: HYDROmorphone 1 MG/ML 1 ML SYRINGE IVP ONE ×4 (15:00→15:11)
[2016-03-29] MEDS ORDERED: MEPERIDINE 50 MG/ML SYRINGE IVP ONE (15:16)
[2016-03-29 19:24] VITALS: RESP 16
--- NOTE | 2016-03-29 23:12 | PN ---
Patient is a 26-year-old female who was seen by Dr. Dominguez yesterday; came in with right upper quadrant abdominal pain as well as epigastric abdominal pain. Ultrasound was negative for cholecystitis, because of which patient was treated for gastritis. In spite of treatment for gastritis, patient ( ) right upper quadrant pain. HIDA scan was done subsequently and HIDA scan did show decreased ejection fraction consistent with acute cholecystitis. Patient underwent cholecystectomy which did show inflamed gallbladder. I saw her postoperatively. The patient is still drowsy. REVIEW OF SYSTEMS: CARDIOVASCULAR: No chest pain, no orthopnea, no PND, no palpitations. PULMONARY: Denied any shortness of breath. No cough or hemoptysis. GASTROINTESTINAL: No diarrhea, nausea or vomiting. No abdominal pain. Normoactive bowel sounds. NEUROLOGIC: No headaches, no weakness, no numbness. Medications were reviewed. PHYSICAL EXAMINATION: VITAL SIGNS: Temperature 97.9, pulse of 74, respiratory rate of 18. Blood pressure is 117/63. Saturating at 93% on room air. GENERAL: The patient is alert and oriented x3, not in any acute distress. Well developed, well nourished. HEENT: Pupils are round and equally reacting to light. EOMI. No scleral icterus. No conjunctival pallor. Normocephalic, atraumatic. No pharyngeal erythema. No thyromegaly. CARDIOVASCULAR: S1 and S2 present. No murmurs, rubs, or gallops. PULMONARY: Chest is clear to auscultation, no wheezing or crackles. ABDOMEN: Soft, nontender, nondistended, normoactive bowel sounds. No palpable organomegaly. MUSCULOSKELETAL: No joint swelling or deformity. EXTREMITIES: No cyanosis, clubbing, or pedal edema. NEUROLOGICAL: Gross neurological examination did not reveal any focal deficits. SKIN: No rashes. Laboratory data were reviewed. ASSESSMENT AND PLAN: 1. Acute cholecystitis. 2. Gastritis. PLAN: Patient is status post cholecystectomy. Continue with Protonix. Patient is not on any antibiotics. I leave that decision to Cardiology. Pain control. Tomorrow I will probably switch her to alternate medications. Patient is on Dilaudid at this time. Because of her age, probably Dilaudid is not the most appropriate medication. Continue with IV fluids.
[2016-03-30] MEDS: HYDROmorphone 1 MG/ML 1 ML SYRINGE IV PRN ×2 (03:58→08:10)
[2016-03-30] MEDS: PANTOPRAZOLE 40 MG/10 ML VIAL IV SCH (08:19)
[2016-03-30] MEDS ORDERED: ENOXAPARIN 40 MG/0.4 ML SYRINGE SQ SCH (09:00)
[2016-03-30 09:36] VITALS: BP 106/58; PULSE 78; TEMP 98.7
--- NOTE | 2016-03-30 10:01 | P.PN ---
Subjective 26-year-old being seen by the attending this morning. Patient is postop laparoscopic cholecystectomy for epigastric pain due to acute cholecystitis done on March 29. This been no postop events. Patient states pain medication effective for pain control. Reportedly tolerating diet. Objective - Vital Signs Vital signs: Vital Signs Temp 98.7 F 03/30/16 07:55 Pulse 78 03/30/16 07:55 Resp 16 03/30/16 07:55 BP 106/58 03/30/16 07:55 Pulse Ox 95 03/30/16 07:55 Intake & Output 03/29/16 03/30/16 03/30/16 18:59 06:59 18:59 Intake Total 1650 1460 Output Total 5 Balance 1645 1460 Intake: IV 1450 Oral 200 1460 Output: Estimated Blood Loss 5 Other: Voiding Method Toilet Toilet # Voids 1 1 - Exam Physical exam 26-year-old female resting in bed appears in no acute distress Lungs essentially clear on room air no shortness of breath Heart S1-S2 audible regular Abdomen soft nontender not distended bowel tones present surgical sites no redness tolerating diet Extremities no edema - Labs CBC & Chem 7: 03/29/16 06:52 03/29/16 06:52 Assessment and Plan Plan: Impression Present on admission severe epigastric pain radiating to the right upper quadrant unclear etiology rule out peptic ulcer disease, gastritis Present on admission leukocytosis suspect reactive status post EGD March 28 gastritis no evidence of peptic ulcer disease antral gastritis with a small linear ulceration in the immediate prepyloric area with no bleeding or gastric outlet obstruction HIDA scan March 28 diminished gallbladder ejection fraction calculated at 30% may reflect chronic cholecystitis or biliary dyskinesis Status post upper scopic cholecystectomy due to acute cholecystitis on March 29 Plan From a surgical perspective patient is felt to be appropriate to be discharged there is no need for antibiotics will be followed up in the outpatient setting as directed Continue with the protonix as ordered 40 twice a day DVT and GI prophylaxis IV hydration Pain control The above dictated assessment and findings were discussed with Dr. buenrostro Impression and the plan of care have been dictated as directed. Tennille Blackman nurse practitioner acting as a scribe for dr buenrostro
[2016-03-30] MEDS: HYDROcodone/APAP 5-325MG 1 EACH TAB PO PRN (10:50)
--- NOTE | 2016-03-31 07:58 | DS ---
DATE OF ADMISSION: 03/27/2016 DATE OF DISCHARGE: 03/30/2016 Patient is a 26-year-old female admitted with epigastric abdominal pain and right upper quadrant abdominal pain. Patient was treated for gastritis and patient also underwent cholecystectomy for cholecystitis. Patient is clinically doing well. Abdominal pain resolved. Patient is being discharged today in stable medical condition to home. Patient was seen and examined on the day of discharged. Vital signs are stable. PHYSICAL EXAMINATION: GENERAL: The patient is alert and oriented x3, not in any acute distress. Well developed, well nourished. HEENT: Pupils are round and equally reacting to light. EOMI. No scleral icterus. No conjunctival pallor. Normocephalic, atraumatic. No pharyngeal erythema. No thyromegaly. CARDIOVASCULAR: S1 and S2 present. No murmurs, rubs, or gallops. PULMONARY: Chest is clear to auscultation, no wheezing or crackles. ABDOMEN: Soft, nontender, nondistended, normoactive bowel sounds. No palpable organomegaly. MUSCULOSKELETAL: No joint swelling or deformity. EXTREMITIES: No cyanosis, clubbing, or pedal edema. NEUROLOGICAL: Gross neurological examination did not reveal any focal deficits. SKIN: No rashes. FINAL DIAGNOSES: 1. Acute cholecystitis. 2. Gastritis. Patient's discharge medications include: 1. Protonix. 2. [place]. DISCHARGE: Regular. Activity as tolerated. Follow with Dr. Nathanael Landa in 3 to 5 days. Follow with Surgery as scheduled.
== END 2016-03-30 13:12 | disposition home or self-care (01) | DRG 419 ==
LOC: EC 14:33 → OBSVTOIN 18:20 → 6PED 18:20 → OBSVTOIN 03-27 15:20 → INTOOBSV 03-27 15:20 → UNDODISIN 03-30 13:12
PROVIDERS: ADMIT Hospitalist; ATTEND Hospitalist
PROC: 0DB98ZX Excision of Duodenum, Via Natural or Artificial Opening Endoscopic, Diagnostic (ICD-10-PCS; 2016-03-28)
PROC: 0DB68ZX Excision of Stomach, Via Natural or Artificial Opening Endoscopic, Diagnostic (ICD-10-PCS; 2016-03-28)
PROC: 0DB58ZX Excision of Esophagus, Via Natural or Artificial Opening Endoscopic, Diagnostic (ICD-10-PCS; 2016-03-28)
PROC: 0FT44ZZ Resection of Gallbladder, Percutaneous Endoscopic Approach (ICD-10-PCS; principal; 2016-03-29 11:00)
DX: K81.0 Acute cholecystitis (principal); D64.9 Anemia, unspecified; J06.9 Acute upper respiratory infection, unspecified; K29.00 Acute gastritis without bleeding; Z79.52 Long term (current) use of systemic steroids
CPT/HCPCS: 36415; 43239; 74020; 74177; 76705; 78227; 80053; 80306; 81001; 81025; 82150; 83605; 83690; 85025; 87086; 88304; 88305; 88342; 96361; 96374; 96375

== ENCOUNTER → 2019-10-24 | Outpatient (CLI) | payer BC ==
--- NOTE | 2019-10-24 15:30 | MR ---
EXAMINATION TYPE: MR angio head wo con DATE OF EXAM: 10/24/2019 COMPARISON: NONE HISTORY: Vascular headache, migraines, dizziness TECHNIQUE: Time of flight images focusing on the [place] were performed without contrast.. 2-D and 3-D postprocessing imaging is performed on independent workstation and reviewed. FINDINGS: There is codominant vertebrobasilar system. Vertebral arteries are patent to basilar juncti on. Patent bilateral posterior communicating arteries are seen. No significant focal stenosis or aneu rysmal change in the posterior circulation. Patent anterior communicating artery is present. There is no significant focal stenosis or aneurysmal change in the anterior circulation. IMPRESSION: Unremarkable study.
--- NOTE | 2019-10-24 15:32 | MR ---
EXAMINATION TYPE: MR brain wo/w con DATE OF EXAM: 10/24/2019 COMPARISON: NONE HISTORY: Vascular headache, migraines, dizziness TECHNIQUE: Multiplanar, multisequence images of the brain and brainstem is performed without and with IV contras t, utilizing 6.5 mL intravenous Gadavist . FINDINGS: Diffusion weighted images demonstrate no evidence of a recent infarct or other diffusion ab normality. There is no worrisome extra-axial fluid collection. The ventricular system and cisternal spaces are normal in size and appearance. The brain volume is age appropriate. Roughly 4-6 small to tiny scattered lesions of T2 hyperintensity for reference roughly 4 lesions noted in the bilateral f rontal hemispheres axial image 16. Midline structures demonstrate normal morphology. The craniocervical junction appears within normal limits. Post contrast images demonstrate no abnormal enhancement. The dural venous sinuses appear pa tent. The visualized sinuses are clear and the globes are intact. Nasal septum slightly deviated to l eft of midline. 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 No suspicious enhancement noted.
== END | disposition home or self-care (01) ==
LOC: RADMRIMAIN 14:05
PROVIDERS: ATTEND Psychiatry & Neurology Neurology
DX: G44.1 Vascular headache, not elsewhere classified (principal)
CPT/HCPCS: 70544; 70553; A9585

== ENCOUNTER → 2019-12-11 | Outpatient (CLI) | payer BC ==
[2019-12-11 09:03] VITALS: BP 125/77; PULSE 81; RESP 18; TEMP 98.4
--- NOTE | 2019-12-11 09:16 | P.PAINCN ---
History of Present Illness - Reason for Consult Consult date: 12/11/19 - History of Present Illness This is a 29-year-old patient referred by Dr. Lewis (Neurology) with a chief complaint of chronic headache. Patient has been headaches and she was 17 years old, however in the last 4 months she hasbecome significantly worse. Pain is located at the base the neck with radiation between his shoulder blades and occasionally to the vertex of her head bilaterally. Pain is described as sharp and stabbing when it is very bad, then throughout the day of history very achy. Pain will occasionally shoot to the front of her temples. Exacerbated by sitting loud noises and light. She describes these as triggers as well as stress. There are no alleviating factors. She says she feels headaches 24 hours a day and is currently 4-10. For secondary 10 out of 10 minutes best is a 2 out of 10. 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 He scrubs no neuro deficits, however she says when the pain gets very bad her hearing becomes decreased and she feels like she needed to talk very loud. She also describes vertigo-like symptoms, with shoot feeling like the room is spinning which is very debilitating to her. Currently taking Topamax 50 mg once a day and meclizine, however she says these medications do not work and really only give side effects. Note patient is currently trying to get , this does limit her medication options. denies adverse drug effects from medications. Patient also denies new-onset weakness, bowel/bladder incontinence, or any other signs or symptoms of cauda equina syndrome. There are no signs of acute intoxication, and no indications of medication diversion or overuse. Patient has not had surgery. Patient has not had injections previously. Patient has not had physical therapy recently. In addition to above, 13-point review of systems is also negative for chest pain, shortness of breath, changes in vision, changes in hearing, new onset weakness, abdominal pain, diarrhea, extreme fatigue, malaise, fever, skin changes, homicidal or suicidal ideation, or bowel or bladder incontinence. Physical exam: Vital Signs: Reviewed in EMR GENERAL: Well appearing, in no acute distress PSYCH: Mood and affect is appropriate. Awake, alert, and oriented SKIN: Skin color, texture, turgor normal, no rashes or lesions HEENT: Normocephalic, atraumatic. EOM intact CV: No pedal edema RESP: Respirations are unlabored, no audible wheezing GI: Abdomen non-distended MUSCULOSKELETAL: Hospers to palpation over the nuchal ridge and bilateral cervical paraspinal musculature and occipital region bilaterally. Cranial nerves I through XII are intact. [place]'s and facet loading R negative, however she does feel muscle tightness in her neck when she does do neck flexion and extension. Cervical flexion and extension are intact. Upper extremity 5 out of 5 power in all muscle groups. Torres sign. Flexors are intact. Imaging: None Assessment: 1. Chronic daily migraine headache 2. Occipital neuralgia 3. On paroxysmal positional vertigo Plan: 1. Explanation: Diagnoses, prognoses, and multiple treatment options including but not limited to physical therapy, interventional therapies, medication management and surgery were discussed with the patient and all questions were answered to the patient's satisfaction. 2. Investigations: none 3. 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 4. Procedures: bilateral occipital nerve block. 5. Consultations: follow-up with her neurologist, given that she is having to get , this will make medication management quite limited. 6. Medications: as per neurology 7. Disposition: follow-up after procedure Past Medical History Past Medical History: No Reported History Additional Past Medical History / Comment(s): MIGRAINES. VERTIGO History of Any Multi-Drug Resistant Organisms: None Reported Past Surgical History: Section Additional Past Surgical History / Comment(s): C-SEC X 2 Past Anesthesia/Blood Transfusion Reactions: No Reported Reaction Smoking Status: Never smoker - Past Family History Mother Family Medical History: Hypertension, Neurologic Disorder Additional Family Medical History / Comment(s): Multiple sclerosis, pancreatitis, HTN Medications and Allergies Home Medications Medication Instructions Recorded Confirmed Type Meclizine [Antivert] 12.5 mg PO BID 11/13/19 12/11/19 History Topiramate [Topamax] 50 mg PO DAILY 12/04/19 12/11/19 History Allergies Allergy/AdvReac Type Severity Reaction Status Date / Time ketorolac [From Toradol] Allergy Anaphylaxis Verified 12/04/19 15:14 PQRS Measure Charge Sheet Measure #226: Tobacco Use: Screen & Cessation Intervention: Pt not a tobacco user Measure #111: Pneumonia Vaccination: Pneumococcal vaccine NOT administered or previously given Measure #47: Advance Care Plan: Advance care planning discussed & documented, pt chose/unable to give Measure #317: Preventitive Care & Scrn High Bld Press & F/U: Normal blood pressure, f/u not required Measure #128: Body Mass Index (BMI) Screening & Follow-up: BMI documented within normal parameters Measure #131: Pain Assessment & Follow-up: Pain positive & plan documented Measure #431: Unhealthy Alcohol Use Preventative Care & Scrn: Patient not identified as an unhealthy alcohol user PQRS Narrative: Smoking Status Never smoker Pain Intensity [Posterior Head 4 ] Scale Used Numeric (1 - 10) Hx Alcohol Use (MH) No Home Medications: Ambulatory Orders Meclizine [Antivert] 12.5 mg PO BID 11/13/19 Topiramate [Topamax] 50 mg PO DAILY 12/04/19
== END | disposition home or self-care (01) ==
LOC: PNWHC3 08:52
PROVIDERS: ATTEND Anesthesiology
DX: M54.81 Occipital neuralgia (principal); G43.909 Migraine, unspecified, not intractable, without status migrainosus; H81.10 Benign paroxysmal vertigo, unspecified ear; Z79.891 Long term (current) use of opiate analgesic; Z79.899 Other long term (current) drug therapy
CPT/HCPCS: 99211

== ENCOUNTER 2019-12-31 07:47 | Day surgery (SDC) | payer BC ==
[2019-12-30 09:36] VITALS: BMI 27.4
[~2019-12-31 07:47] MED LIST: LACTATED RINGERS 1,000 ML IV SCH
[2019-12-31 08:13] VITALS: TEMP 97.4
[2019-12-31] MEDS ORDERED: DEXAMETHASONE SOD PHOSPHATE 10 MG/ML 1 ML VIAL ONE (08:38)
[2019-12-31] MEDS ORDERED: ROPIVACAINE 5MG/ML 20ML VIAL ONE (08:38)
--- NOTE | 2019-12-31 08:51 | P.PCN ---
Date of Procedure: 12/31/19 Surgeon: Hortencia Sanchez Pathology: none sent Condition: stable Disposition: PACU Description of Procedure: Pre-operative diagnosis: 1- Bilateral occipital neuralgea Post Operative Diagnosis 1- Bilateral occipital neuralgea Procedure: 1- Bilateral greater occipital nerve block ANESTHESIA:none EBL: Minimal PROCEDURE INDICATION: The patient with neck pain and headache secondary to occipital neuralgea unresponsive to conservative treatments. PROCEDURE DESCRIPTION / TECHNIQUE: The patient was seen and identified in the preoperative area. Risks, benefits, complications, and alternatives were discussed with the patient, the patient agreed to proceed with the procedure and signed the consent. IV was started. Vital signs remained stable throughout the procedure. Patient was taken to the OR and time out was completed. The patient was placed in the prone position on the procedure table. A pillow was placed under the patients chest to increase the cervical interlaminar space. The cervical area and right occiptial area were prepped with chloraprep. Critical pause was taken. Vital signs were closely monitored during the procedure. Conscious sedation was used during the procedure to decrease patients anxiety. The the occipital exuberance and superior nuchal line were identified on the right side of the occiput. The greater occipital nerve location was estimated to be medial to the occipital artery and one third of the distance between the occipital exuberance and the right mastoid and the lesser occipital nerve was about two thirds of the distance between the occipital exuberance and the right mastoid on the superior nuchal line. I used 25-gauge 1-1/2 inch needle to go through the skin at these 2 points and infiltrate 2.5 MLS of a solution made up of 6 MLS Ropivacaine 0.5% +10 mg of Decadron. The solution was infiltrated down to the periosteum.The same procedure was repeated on the left side. Patient tolerated procedure well.
[2019-12-31 08:55] VITALS: RESP 18
[2019-12-31 09:18] VITALS: BP 120/78; PULSE 65
== END 2019-12-31 09:20 | disposition home or self-care (01) ==
LOC: ORPAIN 07:47
PROVIDERS: ATTEND Anesthesiology
DX: M54.81 Occipital neuralgia (principal); Z88.6 Allergy status to analgesic agent
CPT/HCPCS: 81025; 64405; J1100; J2795

== ENCOUNTER → 2020-01-27 | Outpatient (CLI) | payer BC ==
[2020-01-27 12:56] VITALS: BP 132/83; PULSE 72; RESP 16; TEMP 98.6
--- NOTE | 2020-01-27 13:26 | P.PN ---
Subjective Progress Note Date: 01/27/20 This is a follow-up visit for this 29 years old female, who was diagnosed with occipital neuralgia and migraine headache, a few weeks ago we did occipital nerve block she reports she had no benefit from it she continued to have severe neck pain and headache, the symptoms interfere with her quality of life, and the pain localized in the base of the neck and radiated towards the shoulder blade area, and to the top of the head, the pain increased with neck movement, she denies any focal neurological deficit she denies any motor or sensory deficit, she had no fever or night sweats, she'll continue to use Flexeril 5 mg daily at bedtime when necessary Objective - Vital Signs Vital signs: Vital Signs Temp 98.6 F 01/27/20 12:54 Pulse 72 01/27/20 12:54 Resp 16 01/27/20 12:54 BP 132/83 01/27/20 12:54 Pulse Ox 100 01/27/20 12:54 - Exam Physical Examinations : -Constitutiona : Cooperative , not in acute distress . -HEENT : nech : supple , no Lymphadenopathy , normal thyroid size . : eyes : no ptosis , no icterus, no photophobia . - neurologic : Cranial nerve II to XII intact , no focal neurological deffecit . -psychatric : alert , oriented X 3 , appropriate affect , intact judgment and insight . -Lymphatic : no Lymphadenopathy . - musculoskeltal : Cervical Spine motor stregnth in the deltoid and biceps, normal right side , normal Left side motor stregnth biceps and the wrist extensors normal right side ,normal left side . motor stregnth in the triceps muscle . normal Right side , normal Left side deep tendon reflexes normal at the biceps , normal at Brachioradialis , normal at triceps. cervical facet loading test= Positive Bilaterally Spurling test= positive bilaterally. Neck distraction test= positive bilaterally. Pro sign= positive bilaterally. Tenderness over the occipital nerve bilaterally Lumber spine moter stegnth lower extremities ,thigh and legs 5/5 Right side , 5/5 Left side Assessment and Plan Plan: Assessment and plan=1-occipital neuralgia. 2- cervical spondylosis with cervical facet arthropathy without myelopathy. 3-cervicogenic headache. Patient had no benefit from occipital nerve block We will order MRI of the cervical spine without contrast to confirm the diagnosis and patient will follow up in the pain clinic in 2 weeks Time with Patient: Less than 30
== END | disposition home or self-care (01) ==
LOC: PNWHC3 12:14
PROVIDERS: ATTEND Specialist
DX: M54.81 Occipital neuralgia (principal); M47.812 Spondylosis without myelopathy or radiculopathy, cervical region
CPT/HCPCS: 99211

== ENCOUNTER → 2020-02-17 | Outpatient (CLI) | payer BC ==
--- NOTE | 2020-02-17 21:54 | MR ---
EXAMINATION TYPE: MR cervical spine wo con DATE OF EXAM: 02/17/2020 COMPARISON: None HISTORY: Migraines, Dizziness, Neck pain and numbness to elbow sometimes x4-6 months, no prev TECHNIQUE: Multiplanar, multisequence images of the cervical spine were acquired. C2-C3: No evidence for degenerative disc disease. No disc bulge/herniation or protrusion. No Canal stenosis. Foramina are patent bilaterally. C3-C4: No evidence for degenerative disc disease. No disc bulge/herniation or protrusion. No Canal stenosis. Foramina are patent bilaterally. C4-C5: No evidence for degenerative disc disease. No disc bulge/herniation or protrusion. No Canal stenosis. Foramina are patent bilaterally. C5-C6: No evidence for degenerative disc disease. No disc bulge/herniation or protrusion. No Canal stenosis. Foramina are patent bilaterally. C6-C7: No evidence for degenerative disc disease. No disc bulge/herniation or protrusion. No Canal stenosis. Foramina are patent bilaterally. C7-T1: No evidence for degenerative disc disease. No disc bulge/herniation or protrusion. No Canal stenosis. Foramina are patent bilaterally. Cervical segments are intact. There is normal alignment. Cervical spinal cord is of normal signal. Craniovertebral junction relationships are within normal limits. There may be a slight spinal curva ture. IMPRESSION: Normal cervical spine MRI. Difficult to exclude spinal curvature.
== END | disposition home or self-care (01) ==
LOC: RADMRIMAIN 20:36
PROVIDERS: ATTEND Specialist
DX: M43.8X2 Other specified deforming dorsopathies, cervical region (principal)
CPT/HCPCS: 72141

== ENCOUNTER → 2021-02-08 | Outpatient (CLI) | payer BC ==
[2021-02-08 16:40] LABS: ALT 33 U/L (8-44); AST 33 U/L (13-35); African American GFR (CKD) 142.8 (60.0-200.0); Albumin 4.5 g/dL (3.8-4.9); Alkaline Phosphatase 66 U/L (41-126); BUN/Creat Ratio 13.67 Ratio (12.00-20.00); Blood Urea Nitrogen 8.2 mg/dL (9.0-27.0); Calcium 9.6 mg/dL (8.7-10.3); Carbon Dioxide 23.9 mmol/L (21.6-31.8); Chloride 103 mmol/L (96-109); Creatine Kinase 52 U/L (26-186); Ferritin 45.6 ng/mL (10.0-291.0); Globulin 2.5 g/dL (1.6-3.3); Glucose 85 mg/dL (70-110); Iron 23 ug/dL (50-170); Non-African American GFR(CKD) 123.2 (60.0-200.0); Sodium 139 mmol/L (135-145); Total Bilirubin <0.20 mg/dL (0.30-1.20); Total Iron Binding Capacity 356 ug/dL (228-460)
[2021-02-08 18:14] LABS: Rheumatoid Factor, Qnt <10 IU/mL (0-15)
[2021-02-08 20:51] LABS: Basophils # (A) 0.04 X 10*3/uL (0.00-0.10); Basophils % (A) 0.3 %; Eosinophils # (A) 0.18 X 10*3/uL (0.04-0.35); Eosinophils % (A) 1.3 %; HGB 10.3 g/dL (12.0-15.0); Lymphocytes % (A) 27.2 %; MCH 25.7 pg (27.0-32.0); MCHC 29.4 g/dL (32.0-37.0); MCV 87.3 fL (80.0-97.0); Mean Platelet Volume 9.6 fL (9.5-12.2); Monocytes # (A) 0.99 X 10*3/uL (0.20-1.00); Monocytes % (A) 6.9 %; Neutrophils # (A) 9.11 X 10*3/uL (1.80-7.70); Neutrophils % (A) 63.5 %; Platelet Count 450 X 10*3/uL (140-440); RBC 4.01 X 10*6/uL (4.10-5.20); RDW 17.2 % (11.5-14.5); WBC 14.34 X 10*3/uL (4.50-10.00)
[2021-02-08 22:02] LABS: Erythrocyte Sedimentation Rate 38 mm/Hr (0-20)
== END | disposition home or self-care (01) ==
LOC: LABWHC1 08:47
PROVIDERS: ATTEND Physician Assistant
DX: E03.9 Hypothyroidism, unspecified (principal); D64.9 Anemia, unspecified; H46.9 Unspecified optic neuritis; E61.1 Iron deficiency
CPT/HCPCS: 36415; 80053; 82040; 82042; 82306; 82550; 82607; 82728; 82784; 83540; 83550; 83916; 84439; 84443; 84466; 84481; 85025; 85652; 86140; 86431

== ENCOUNTER → 2021-03-11 | Outpatient (CLI) | payer BC ==
[2021-03-11 14:34] LABS: Basophils # (A) 0.06 X 10*3/uL (0.00-0.10); Basophils % (A) 0.6 %; Eosinophils # (A) 0.13 X 10*3/uL (0.04-0.35); Eosinophils % (A) 1.3 %; HCT 36.7 % (37.2-46.3); HGB 10.6 g/dL (12.0-15.0); Lymphocytes # (A) 2.44 X 10*3/uL (0.90-5.00); Lymphocytes % (A) 24.1 %; MCHC 28.9 g/dL (32.0-37.0); Mean Platelet Volume 10.1 fL (9.5-12.2); Monocytes # (A) 0.71 X 10*3/uL (0.20-1.00); Neutrophils # (A) 6.75 X 10*3/uL (1.80-7.70); Neutrophils % (A) 66.7 %; Platelet Count 491 X 10*3/uL (140-440); RBC 4.42 X 10*6/uL (4.10-5.20); RDW 15.4 % (11.5-14.5); WBC 10.12 X 10*3/uL (4.50-10.00)
[2021-03-11 15:16] LABS: % Iron Saturation 10.64 (12.00-45.00); C Reactive Protein 2.8 mg/dL (0.00-0.80)
[2021-03-11 16:29] LABS: Erythrocyte Sedimentation Rate 56 mm/Hr (0-20)
== END | disposition home or self-care (01) ==
LOC: LABWHC1 07:36
PROVIDERS: ATTEND Physician Assistant
DX: H46.8 Other optic neuritis (principal); D64.9 Anemia, unspecified
CPT/HCPCS: 36415; 83540; 83550; 85025; 85652; 86140

== ENCOUNTER → 2021-12-16 | Outpatient (CLI) | payer BC ==
[2021-12-16 08:54] LABS: Basophils % (A) 0 %; Eosinophils # (A) 0.1 k/uL (0-0.7); Eosinophils % (A) 2 %; HCT 34.7 % (34.0-46.0); HGB 10.4 gm/dL (11.4-16.0); Hypochromasia Marked; Lymphocytes # (A) 1.5 k/uL (1.0-4.8); Lymphocytes % (A) 25 %; MCH 23.6 pg (25.0-35.0); MCHC 30.1 g/dL (31.0-37.0); MCV 78.4 fL (80.0-100.0); Mean Platelet Volume 7.9; Monocytes # (A) 0.2 k/uL (0-1.0); Monocytes % (A) 3 %; Neutrophils % (A) 68 %; Platelet Count 413 k/uL (150-450); RBC 4.42 m/uL (3.80-5.40); RDW 14.5 % (11.5-15.5); WBC 5.9 k/uL (3.8-10.6)
[2021-12-16 09:06] LABS: ALT 21 U/L (4-34); AST 43 U/L (14-36); African American GFR (CKD) >90 (>60 ml/min/1.73 sqM); Albumin 4.5 g/dL (3.5-5.0); Albumin/Globulin Ratio 1.7; Alkaline Phosphatase 68 U/L (38-126); Anion Gap 11 mmol/L; Blood Urea Nitrogen 7 mg/dL (7-17); Calcium 9.2 mg/dL (8.4-10.2); Carbon Dioxide 28 mmol/L (22-30); Chloride 103 mmol/L (98-107); Globulin 2.6 g/dL; Glucose 114 mg/dL (74-99); Non-African American GFR(CKD) >90 (>60 ml/min/1.73 sqM); Potassium 3.6 mmol/L (3.5-5.1); Sodium 142 mmol/L (137-145); Total Bilirubin 0.3 mg/dL (0.2-1.3); Total Protein 7.1 g/dL (6.3-8.2)
[2021-12-16 09:22] LABS: T4, Free (Free Thyroxine) 1.67 ng/dL (0.78-2.19)
[2021-12-16 19:36] LABS: % Iron Saturation 5.47 (12.00-45.00); Iron 19 ug/dL (50-170); Total Iron Binding Capacity 346 ug/dL (228-460)
== END | disposition home or self-care (01) ==
LOC: LABWHC1 08:00
PROVIDERS: ATTEND Psychiatry & Neurology Neurology
DX: E55.9 Vitamin D deficiency, unspecified (principal); D64.9 Anemia, unspecified; R53.83 Other fatigue
CPT/HCPCS: 36415; 80053; 82306; 82607; 82728; 83540; 83550; 84207; 84439; 84443; 84466; 84481; 85025

== ENCOUNTER → 2022-06-16 | Outpatient (CLI) | payer BC ==
--- NOTE | 2022-06-16 11:07 | US ---
EXAMINATION TYPE: US thyroid st tissue head/neck DATE OF EXAM: 06/16/2022 COMPARISON: Nuclear medicine thyroid scan 5 09/30/2015. CLINICAL HISTORY: R93.7 ABN MRI performed elsewhere that showed a heterogenous rt lobe and absent lef t lobe; no prior imaging or surgery per patient. GLAND SIZE: Right Lobe: 5.0 x 1.3 x 1.7 cm Overall Parenchyma: mildly heterogeneous Left Lobe: 1.1 x 0.4 x 0.6 cm Overall Parenchyma: small, echogenic ovoid tissue, without suspicious features. Isthmus Thickness: 0.2 cm NODULES RIGHT: # of nodules measured on right: 0 LEFT: # of nodules measured on left: 0 ISTHMUS: # of nodules measured in the isthmus: 0 Bilateral neck scanned, no evidence of lymphadenopathy. IMPRESSION: Heterogenous thyroid gland, correlate with serum markers for thyroiditis.
== END | disposition home or self-care (01) ==
LOC: RADUSWWP 08:52
PROVIDERS: ATTEND Otolaryngology
DX: E07.89 Other specified disorders of thyroid (principal); R93.7 Abnormal findings on diagnostic imaging of other parts of musculoskeletal system
CPT/HCPCS: 76536

== ENCOUNTER → 2022-07-14 | Outpatient (CLI) | payer BC ==
[2022-07-14 20:40] LABS: Thyroid Peroxidase Antibodies 11.9 U/mL (0.0-33.0)
== END | disposition home or self-care (01) ==
LOC: LABWHC1 09:06
PROVIDERS: ATTEND Otolaryngology
DX: E06.3 Autoimmune thyroiditis (principal)
CPT/HCPCS: 36415; 84443; 86376; 86800

== ENCOUNTER → 2022-11-10 | Outpatient (CLI) | payer BC ==
[2022-11-10 15:18] LABS: Rheumatoid Factor, Qnt <15 IU/mL (0-15)
[2022-11-10 16:25] LABS: Anti-Smith Ab Interp Negative (Negative); Centromere Antibody <0.2 AI; Centromere Antibody Interp Negative (Negative); DNA Double-Stranded Negative (Negative); JO-1 IgG Antibody <0.2 AI; Scleroderma SC-70 Ab <0.2 AI
[2022-11-11 12:05] LABS: Cyclic Citrull Pep IgG Unit <1.5 U/mL (<=3.9); Cyclic Citrullinated Pep IgG Negative
[2022-11-11 13:57] LABS: Histone Antibody 1.4 UNITS (<1.0)
== END | disposition home or self-care (01) ==
LOC: LABWHC1 08:29
PROVIDERS: ATTEND Psychiatry & Neurology Neurology
DX: M25.50 Pain in unspecified joint (principal)
CPT/HCPCS: 36415; 83516; 86038; 86140; 86200; 86225; 86235; 86431

== ENCOUNTER → 2023-02-01 | Outpatient (CLI) | payer BC ==
--- NOTE | 2023-02-01 08:09 | MM ---
Reason for Exam: Clinical finding. Baseline mammogram. Patient History: Menarche at age 14. First Full-Term at age 21. Premenopausal. Paternal grandmother had breast cancer, age 36. Last menstrual period: 01/04/2023 Prior Study Comparison: Patient's first Mammogram. Tissue Density: The breast tissue is extremely dense which could obscure a lesion on mammography. Findings: Analyzed By CAD. Pattern appears symmetrical. No suspicious abnormalities to account for patient's right breast pain. No suspicious groups of microcalcifications, spiculated or lobular masses, architectural distortion or other secondary signs of malignancy are mammographically apparent. Overall Assessment: Incomplete: need additional imaging evaluation, BI-RAD 0 Management: Diagnostic Breast Ultrasound of the right breast. A negative mammogram report should not preclude additional follow up of suspicious palpable abnormalities. Patient should continue monthly self breast exam. A clinical breast exam by your physician is recommended on an annual basis and results should be correlated with mammographic findings. Electronically signed and approved by: Pablo Jasso D.O. Radiologis
--- NOTE | 2023-02-01 08:27 | USB ---
Reason for Exam: Clinical finding. Patient History: Menarche at age 14. First Full-Term at age 21. Premenopausal. Paternal grandmother had breast cancer, age 36. Technique: Method: Targeted. Findings: The lateral section of the breast of the right breast was scanned. No solid or cystic masses are identified.. Overall Assessment: Negative, BI-RAD 1 Management: Screening Mammogram of both breasts at age 41. A clinical breast exam by your physician is recommended on an annual basis and results should be correlated with mammographic findings. This exam should not preclude additional follow-up of suspicious palpable abnormalities. Results were given to the patient verbally at the time of exam. Electronically signed and approved by: Pablo Jasso D.O. Radiologis
== END | disposition home or self-care (01) ==
LOC: RADMAMWWP 07:31
PROVIDERS: ATTEND Obstetrics & Gynecology
DX: N64.4 Mastodynia (principal); Z80.3 Family history of malignant neoplasm of breast
CPT/HCPCS: 77062; 77066

== ENCOUNTER 2024-02-02 15:08 | Outpatient (CLI) | payer OTHER ==
[2024-02-02 16:10] LABS: Basophils % (A) 0 %; Eosinophils # (A) 0.1 k/uL (0-0.7); Eosinophils % (A) 1 %; HCT 32.7 % (34.0-46.0); HGB 10.6 gm/dL (11.4-16.0); Lymphocytes # (A) 1.2 k/uL (1.0-4.8); Lymphocytes % (A) 13 %; MCH 26.2 pg (25.0-35.0); MCHC 32.4 g/dL (31.0-37.0); Mean Platelet Volume 8.9; Monocytes # (A) 0.5 k/uL (0-1.0); Monocytes % (A) 5 %; Neutrophils # (A) 7.3 k/uL (1.3-7.7); Neutrophils % (A) 79 %; Platelet Count 287 k/uL (150-450); RBC 4.04 m/uL (3.80-5.40); RDW 14.7 % (11.5-15.5); WBC 9.2 k/uL (3.8-10.6)
[2024-02-02 16:23] LABS: ALT 18 U/L (4-34); AST 49 U/L (14-36); African American GFR (CKD) >90 (>60 ml/min/1.73 sqM); Blood Urea Nitrogen 5 mg/dL (7-17); LDH 182 U/L (120-246); Non-African American GFR(CKD) >90 (>60 ml/min/1.73 sqM); Uric Acid 5.1 mg/dL (3.7-7.4)
[2024-02-02 16:27] LABS: Appearance,Urine Clear (Clear); Bilirubin,Urine Negative (Negative); Blood,Urine Negative (Negative); Color,Urine Colorless; Glucose,Urine (UA) Negative (Negative); Ketones,Urine Negative (Negative); Leukocyte Esterase,Urine Negative (Negative); Nitrite,Urine Negative (Negative); Protein,Urine Negative (Negative); Specific Gravity,Urine 1.005 (1.001-1.035); Urobilinogen,Urine <2.0 mg/dL (<2.0)
[2024-02-02 16:39] LABS: Creatinine,Urine Random 35.5 mg/dL; Protein/Creatinine Ratio,Urine 0.366
[2024-02-02 17:00] VITALS: BP 124/72; PULSE 102; RESP 17
--- NOTE | 2024-02-04 06:32 | P.MSEPDOC ---
Presenting Problems - Arrival Data Date of Arrival on Unit: 02/02/24 Time of Arrival on Unit: 15:08 Mode of Transport: Ambulatory - Complaint OB-Reason for Admission/Chief Complaint: Elevated Blood Pressure Comment: pt presented to triage for elevated bp's while she was at work, 150's/100's, has had headache all day, nausea on and off Medical History - Information : 3 Para: 2 Term: 2 : 0 Abortions: Spontaneous or Elective: 0 Number of Living Children: 2 - Gestational Age Gestational Age by OWEN (wks/days): 34 Weeks and 1 Days - History Complications: Prior Review of Systems - Review of Systems Constitutional: No problems Breast: No problems ENT: No problems Cardiovascular: No problems Respiratory: No problems Gastrointestinal: No problems Genitourinary: No problems Musculoskeletal: No problems Neurological: No problems Skin: No problems Vital Signs - Pulse Right Brachial Pulse Rate: 102 Pulse Assessment Method: Automatic Cuff - Respirations Respiratory Rate: 17 Oxygen Delivery Method: Room Air O2 Sat by Pulse Oximetry: 99 - Blood Pressure Right Arm Blood Pressure: 124/72 Blood Pressure Mean: 89 Blood Pressure Source: Automatic Cuff Medical Screen Scoring - Uterine Contractions Intensity: Mild Resting: Soft to palpation - Assessment - Baby A Baseline FHR: 140 Heart Rate - NICHD Category: Category I (Normal) NST: Reactive Physician Notification - Notification Comment Comment: PI labs obtained, bp's wnl, reactive nst, Dr. Brown notified of labs, pt to follow up on monday and in the office for nst's, she is to have office recheck bp's Maternal Triage Index - Maternal Triage Index Presenting for scheduled procedure w/no complaint: No - Stat/Priority 1 Stat Priority 1: No - Urgent/Priority 2 Urgent Priority 2: Yes Provider Notified: Pawel Brown Provider Notified Time: 16:38 Criteria Met for Priority 2: pt presented to triage for elevated bp's while she was at work, 150's/100's, has had headache all day, nausea on and off, Dr. Brown called in to notify staff pt coming in and gave orders to obtain [facility] labs Disposition - Disposition OB Disposition: Discharge to home, Written follow up instructions reviewed Discharge Date: 02/02/24 Discharge Time: 16:47 I agree with the RN Medical Screening Exam: Yes Physician's MSE Comment: I have neither seen nor examined the patient. Case reviewed; plan agreed upon as documented in EMR&OBIX.: Yes Diagnosis: RELATED CONDITIONS, UNSPECIFIED, THIRD TRIMESTER
== END 2024-02-02 16:47 | disposition home or self-care (01) ==
LOC: FBPOP 15:08
PROVIDERS: ATTEND Obstetrics & Gynecology
DX: O26.893 Other specified pregnancy related conditions, third trimester (principal); R03.0 Elevated blood-pressure reading, without diagnosis of hypertension; R51.9 Headache, unspecified; Z3A.34 34 weeks gestation of pregnancy; Z88.8 Allergy status to other drugs, medicaments and biological substances
CPT/HCPCS: 36415; 59025; 81003; 82565; 82570; 83615; 84156; 84450; 84460; 84520; 84550; 85025; 99215

== ENCOUNTER 2024-02-05 09:54 | Outpatient (CLI) | payer OTHER ==
[2024-02-05] MEDS: BETAMET ACET-BETAMETH SOD PHOS 6 MG/ML MDV IM SCH (10:08)
== END 2024-02-05 10:15 | disposition home or self-care (01) ==
LOC: FBPOP 09:54
PROVIDERS: ATTEND Obstetrics & Gynecology
DX: O26.893 Other specified pregnancy related conditions, third trimester (principal); Z3A.34 34 weeks gestation of pregnancy; Z29.89 Encounter for other specified prophylactic measures; Z88.6 Allergy status to analgesic agent
CPT/HCPCS: 96372; J0702

== ENCOUNTER 2024-02-06 10:14 | Outpatient (CLI) | payer OTHER ==
[2024-02-06] MEDS: BETAMET ACET-BETAMETH SOD PHOS 6 MG/ML MDV IM SCH (10:37)
[2024-02-06 10:52] VITALS: BP 122/71; PULSE 85; RESP 16; TEMP 98.4
== END 2024-02-06 10:50 | disposition home or self-care (01) ==
LOC: FBPOP 10:14
PROVIDERS: ATTEND Obstetrics & Gynecology
DX: O26.893 Other specified pregnancy related conditions, third trimester (principal); Z3A.34 34 weeks gestation of pregnancy; Z29.89 Encounter for other specified prophylactic measures; Z88.6 Allergy status to analgesic agent
CPT/HCPCS: 96372; J0702

== ENCOUNTER 2024-02-22 10:25 | Inpatient (IN) | payer OTHER ==
[2024-02-22] MEDS ORDERED: CARBOPROST TROMETHAMINE 250 MCG/ML 1 ML AMP IM PRN (10:43)
[2024-02-22] MEDS ORDERED: METHYLERGONOVINE 0.2 MG/ML 1 ML AMP IM PRN (10:43)
[2024-02-22] MEDS ORDERED: TRANEXAMIC 1,000 MG/100ML-NACL 1,000 MG in EMPTY BAG 1 BAG IV PRN (10:43)
[2024-02-22] MEDS ORDERED: miSOPROStoL 200 MCG TAB PO PRN (10:43)
[2024-02-22] MEDS ORDERED: OXYTOCIN 10 UNIT/ML 1 ML VIAL IM PRN (10:43)
[2024-02-22] MEDS ORDERED: OXYTOCIN 30 UNITS/500 ML NS 30 UNIT in SALINE 1 500ML.BAG IV SCH (10:45)
[2024-02-22 10:48] LABS: Glucose,Whole Blood 78 mg/dL (70-110)
[2024-02-22] MEDS: CITRIC ACID-SODIUM CITRATE 15 ML CUP PO ONE (10:55)
[2024-02-22 10:57] LABS: Basophils % (A) 0 %; Eosinophils # (A) 0.1 k/uL (0-0.7); Eosinophils % (A) 1 %; HCT 32.4 % (34.0-46.0); HGB 10.5 gm/dL (11.4-16.0); Lymphocytes # (A) 1.6 k/uL (1.0-4.8); Lymphocytes % (A) 17 %; MCH 26.1 pg (25.0-35.0); MCHC 32.4 g/dL (31.0-37.0); MCV 80.5 fL (80.0-100.0); Mean Platelet Volume 9.5; Monocytes # (A) 0.4 k/uL (0-1.0); Monocytes % (A) 5 %; Neutrophils # (A) 6.8 k/uL (1.3-7.7); Neutrophils % (A) 75 %; Platelet Count 256 k/uL (150-450); RBC 4.02 m/uL (3.80-5.40); RDW 15.5 % (11.5-15.5); WBC 9.1 k/uL (3.8-10.6)
[2024-02-22 11:24] VITALS: RESP 16
[2024-02-22] MEDS: LACTATED RINGERS 1,000 ML IV ONE (11:43)
[2024-02-22] MEDS ORDERED: OXYTOCIN 30 UNITS/500 ML NS BAG IV ONE (12:10)
[2024-02-22] MEDS ORDERED: MORPHINE SULFATE (PF) 0.3 MG/0.3 ML SYR ONE (12:10)
[2024-02-22] MEDS ORDERED: NALBUPHINE (ANES) 10 MG/ML - 1 ML AMP ONE (12:10)
[2024-02-22] MEDS ORDERED: ePHEDrine 50 MG/ML 1 ML VIAL ONE (12:10)
[2024-02-22] MEDS ORDERED: ONDANSETRON 4 MG/2 ML VIAL ONE (12:10)
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
--- NOTE | 2024-02-22 13:22 | P.OP ---
Date of Procedure: 02/22/24 Preoperative Diagnosis: Intrauterine at 37-0/7 weeks History of intrauterine growth restriction History of 2 previous low transverse sections Gestational diabetes -induced hypertension Desires permanent sterility Postoperative Diagnosis: Same Procedure(s) Performed: Repeat low transverse section with bilateral salpingectomy Anesthesia: spinal Surgeon: Sarita Peralta Fishing Vessel Mate #1: Kellie Hernandez Estimated Blood Loss (ml): 710 IV fluids (ml): 1,000 Urine output (ml): 100 Pathology: other (Placenta) Disposition: floor Indications for Procedure: This is admitted at [age]-year-old 3 para 03/20/2000 woman who is admitted at 37-0/7 weeks gestation for repeat low transverse section secondary to history of intrauterine growth just restriction. Please see the history and physical for complete details. Patient has signed consent for bilateral salpingectomy. Operative Findings: Female infant in the vertex presentation with Apgars of 8 at 1 minute and 9 at 5 minutes weighing 5 lbs. 15 oz., 2680 g. Arcuate appearing uterus. Normal bilateral fallopian tubes and ovaries. Normal intact three-vessel cord placenta. Description of Procedure: After the patient was met preoperatively and all questions were answered, she was taken to the operating room where spinal anesthetic was administered without incident. She was then positioned, prepped and draped in the dorsal supine position with a leftward tilt. Spivey catheter was placed. After anesthetic was confirmed adequate, a low transverse skin incision was made following the pre- existing scar. This was carried down to the underlying fascia both sharply and with the electrocautery. The fascia was then incised in the midline and extended bilaterally with the Alvarez scissors. The superior aspect of the fascial incision was elevated and the underlying rectus muscles dissected off sharply and with the electrocautery. The inferior aspect of the fascial incision was also elevated and the underlying rectus muscles dissected off sharply. The muscles were adherent in the midline. These were bluntly and the peritoneum was tented up with hemostats. The peritoneum was entered sharply with the Metzenbaum scissors. The peritoneal incision was extended inferiorly and superiorly with good visualization of the bladder. The bladder blade was placed. The vesicouterine peritoneum was identified, tented up and entered sharply, the bladder flap was created both sharply and digitally. A low transverse uterine incision was then made sharply and carried down to the underlying amniotic membranes. Membranes were ruptured and clear fluid was noted. The uterine incision was extended bilaterally bluntly. The infant's head was delivered from the incision With the assistance of the vacuum device. The nose and mouth were bulb suctioned. The rest of the infant was delivered onto the field without difficulty. And cut and the was taken to the warmer. An intact, three-vessel cord placenta was then manually removed and the uterus was exteriorized. The uterus was cleared of all clot and debris. The uterine incision was delineated with Branch clamps. The uterine incision was then closed in a running locked fashion with 0 Vicryl suture. Additional [id number] sutures were placed where necessary along the incision for hemostasis. The right and left fallopian tubes were positively identified and carried out to the fimbriated ends. LigaSure device was utilized to cauterize and transect the entire course of the mesial salpinx bilaterally removing both tubes in their entirety. These were passed off as pathology specimen. The uterine incision was reinspected and Bovie electrocautery was utilized were necessary for hemostasis. The fascial edges, peritoneal edges and rectus muscles were inspected and Bovie electrocautery utilized were necessary for hemostasis. The fascia was then closed in a running fashion with 0 Vicryl suture. The subcuticular tissue was copiously suction irrigated and Bovie electrocautery utilized were necessary for hemostasis. 3-0 Vicryl suture was utilized to reapproximate the subcuticular tissue. The skin was then closed in a subcutaneous fashion with 4-0 Vicryl suture. All counts reported to me as correct by the operating room staff at the end of the procedure. The patient received antibiotics preoperatively and Pitocin following cord clamp. Mother and infant were both transported from the room in stable condition.
[2024-02-22] MEDS ORDERED: METOCLOPRAMIDE 5 MG/ML 2 ML VIAL IVP PRN (15:37)
[2024-02-22] MEDS ORDERED: HYDROmorphone 1 MG/ML 1 ML SYRINGE IVP PRN (15:37)
[2024-02-22] MEDS ORDERED: diphenhydrAMINE 25 MG CAP PO PRN (15:37)
[2024-02-22] MEDS ORDERED: diphenhydrAMINE 50 MG/ML 1 ML VIAL IVP PRN ×2 (15:37)
[2024-02-22] MEDS ORDERED: diphenhydrAMINE 50 MG CAP PO PRN (15:37)
[2024-02-22] MEDS ORDERED: ONDANSETRON 4 MG/2 ML VIAL IVP PRN (15:37)
[2024-02-22] MEDS ORDERED: NALOXONE 0.4 MG/ML 1 ML VIAL IV PRN (15:37)
[2024-02-22] MEDS ORDERED: SIMETHICONE 80 MG CHEWABLE PO PRN (15:37)
[2024-02-22] MEDS ORDERED: ZOLPIDEM 5 MG TAB PO PRN (15:37)
[2024-02-22] MEDS: ACETAMINOPHEN TAB 500 MG TAB PO SCH (15:59)
[2024-02-22] MEDS: LACTATED RINGERS 1,000 ML IV SCH (17:30)
[2024-02-22] MEDS: IBUPROFEN 800 MG TAB PO SCH (19:35)
[2024-02-22] MEDS: SENNOSIDES-DOCUSATE SODIUM 1 EACH TAB PO SCH (19:36)
--- NOTE | 2024-02-23 07:03 | P.PN ---
Progress Note - Text 02/22 621am 33-year-old female status post with spinal Duramorph. Patient seen and evaluated for postop pain control, she has a VAS of 0 at rest and 4 at ambulation. Patient is doing well with no anesthesia related issues
[2024-02-23 07:14] LABS: Basophils % (A) 0 %; Eosinophils # (A) 0.1 k/uL (0-0.7); Eosinophils % (A) 2 %; HCT 30.1 % (34.0-46.0); HGB 9.6 gm/dL (11.4-16.0); Hypochromasia Slight; Lymphocytes # (A) 1.5 k/uL (1.0-4.8); Lymphocytes % (A) 19 %; MCHC 31.9 g/dL (31.0-37.0); MCV 81.6 fL (80.0-100.0); Mean Platelet Volume 9.5; Monocytes # (A) 0.4 k/uL (0-1.0); Monocytes % (A) 5 %; Neutrophils # (A) 5.9 k/uL (1.3-7.7); Neutrophils % (A) 72 %; Platelet Count 241 k/uL (150-450); RBC 3.69 m/uL (3.80-5.40); RDW 15.5 % (11.5-15.5); WBC 8.1 k/uL (3.8-10.6)
--- NOTE | 2024-02-23 09:33 | P.PNOBGPC ---
Subjective - Subjective Principal diagnosis: Postop day 1 repeat Interval history: Complaining of upper abdominal pain through the night, alternating Tylenol and ibuprofen. Patient reports: Reports appetite normal, Reports voiding normally, Reports ambulating normally, Denies dizzy ambulation, Denies pain well controlled, Denies nauseated [place]: doing well Objective - Vital Signs Latest vital signs: Vital Signs Temp Pulse Resp BP Pulse Ox 02/23/24 01:25 98.0 F 78 16 119/71 02/22/24 15:30 96.8 F L 67 16 130/71 98 02/22/24 14:58 70 16 114/70 98 02/22/24 14:45 64 16 121/74 98 02/22/24 14:30 65 16 120/77 97 02/22/24 14:15 67 16 126/65 98 02/22/24 14:00 66 16 126/64 98 02/22/24 13:45 69 16 126/64 97 02/22/24 13:30 67 16 131/76 98 02/22/24 13:15 97.3 F L 67 16 119/69 98 02/22/24 11:18 97.2 F L 78 16 132/74 98 Intake and Output 02/22/24 02/23/24 02/23/24 22:59 06:59 14:59 Output Total 232 1900 Balance -232 -1900 Output: Urine 200 1900 Output, Quantitative 32 Blood Loss - Exam Extremities: Present: normal. Absent: tenderness, edema Abdomen: Present: normal appearance, soft, tenderness. Absent: distention Incision: Present: normal, dry, intact. Absent: erythematous Uterus: Present: normal, firm, tenderness - Labs Labs: Abnormal Lab Results - Last 24 Hours (Table) 02/22/24 02/23/24 Range/Units 10:46 06:59 RBC 3.69 L (3.80-5.40) m/uL Hgb 10.5 L 9.6 L (11.4-16.0) gm/dL Hct 32.4 L 30.1 L (34.0-46.0) % Assessment and Plan (1) 37 weeks gestation of Current Visit: Yes Status: Acute Code(s): Z3A.37 - 37 WEEKS GESTATION OF SNOMED Code(s): 53783837 (2) History of Current Visit: Yes Status: Acute Code(s): Z98.891 - HISTORY OF UTERINE SCAR FROM PREVIOUS SURGERY SNOMED Code(s): 767701855 (3) Gestational diabetes Current Visit: Yes Status: Acute Code(s): O24.419 - GESTATIONAL DIABETES MELLITUS IN , UNSP CONTROL SNOMED Code(s): 95093045 (4) induced hypertension Current Visit: Yes Status: Acute Code(s): O13.9 - GESTATIONAL HTN W/O SIGNIFICANT PROTEINURIA, UNSP TRIMESTER SNOMED Code(s): 17540183 (5) Family planning Current Visit: Yes Status: Acute Code(s): Z30.09 - ENCOUNTER FOR OTH GENERAL CNSL AND ADVICE ON CONTRACEPTION SNOMED Code(s): 875929339 Plan: Postop day 1 status post repeat low transverse section with bilateral salpingectomy. Blood pressures normal overnight. Pain is not well controlled, reviewed scheduled pain medication use. Encouraged ambulation. Possible discharge home tomorrow.
[2024-02-24 00:54] VITALS: PULSE 76
[2024-02-24 08:22] VITALS: BP 109/69; TEMP 98.5
--- NOTE | 2024-02-24 09:24 | P.PNOBGPC ---
Subjective - Subjective Principal diagnosis: Postop day 2, repeat section, bilateral salpingectomy Interval history: Patient is doing well postoperatively. She states her pain is moderately well- controlled and she has started receiving oxy for pain control. Lochia is noted be minimal. She is passing flatus, tolerating a regular diet without nausea or vomiting. Spontaneous void status post Spivey removal. Patient reports: Reports appetite normal, Reports voiding normally, Reports pain poorly controlled, Reports ambulating normally [place]: doing well Objective - Vital Signs Latest vital signs: Vital Signs Temp Pulse Resp BP Pulse Ox 02/24/24 08:00 98.5 F 76 16 109/69 98 02/24/24 00:00 98.4 F 76 16 128/77 98 02/23/24 15:51 97.9 F 79 16 112/71 98 Intake and Output 02/23/24 02/24/24 02/24/24 22:59 06:59 14:59 Other: # Voids 1 1 - Exam Extremities: Present: normal, edema Abdomen: Present: normal appearance, soft Incision: Present: normal, dry, intact Uterus: Present: normal, firm Assessment and Plan (1) Status post section Current Visit: Yes Status: Acute Code(s): Z98.891 - HISTORY OF UTERINE SCAR FROM PREVIOUS SURGERY SNOMED Code(s): 470026366 (2) 37 weeks gestation of Current Visit: Yes Status: Acute Code(s): Z3A.37 - 37 WEEKS GESTATION OF SNOMED Code(s): 39218236 (3) Family planning Current Visit: Yes Status: Acute Code(s): Z30.09 - ENCOUNTER FOR OT GENERAL CNSL AND ADVICE ON CONTRACEPTION SNOMED Code(s): 806261798 (4) Gestational diabetes Current Visit: Yes Status: Acute Code(s): O24.419 - GESTATIONAL DIABETES MELLITUS IN , UNSP CONTROL SNOMED Code(s): 48738544 (5) History of Current Visit: Yes Status: Acute Code(s): Z98.891 - HISTORY OF UTERINE SCAR FROM PREVIOUS SURGERY SNOMED Code(s): 341687836 (6) induced hypertension Current Visit: Yes Status: Acute Code(s): O13.9 - GESTATIONAL HTN W/O SIGNIFICANT PROTEINURIA, UNSP TRIMESTER SNOMED Code(s): 47543960 Plan: Patient is overall doing well postoperatively. Patient has moderate pain control, discussed staying today to get her pain well-controlled and consider discharge later this evening versus tomorrow morning. Patient is willing to stay for pain control.
--- NOTE | 2024-02-24 11:05 | P.PN ---
Progress Note - Text Adequate analgesia. No complications from anesthesia.
[2024-02-24] MEDS: IBUPROFEN 800 MG TAB PO SCH (12:07)
--- NOTE | 2024-02-24 15:31 | P.DS ---
Providers Date of admission: 02/22/24 10:25 Expected date of discharge: 02/24/24 Attending physician: Sarita Peralta Primary care physician: Stated None - Discharge Diagnosis(es) (1) Status post section Current Visit: Yes Status: Acute (2) 37 weeks gestation of Current Visit: Yes Status: Acute (3) Family planning Current Visit: Yes Status: Acute (4) Gestational diabetes Current Visit: Yes Status: Acute (5) History of Current Visit: Yes Status: Acute (6) induced hypertension Current Visit: Yes Status: Acute Hospital Course: This is a 33-year-old 3 para 0-2-0-2 admitted at 37 weeks of gestation for repeat section secondary to a history of intrauterine growth restriction. In addition patient was requesting permanent sterilization with bilateral salpingectomy. For full details in this patient please see the dictated history and physical. Patient was taken back to the operating suite where repeat section with bilateral salpingectomy was performed without difficulty. Patient delivered a viable female infant in vertex presentation weight of 5 pounds 15 ounces or 2680 g. Arcuate appearing uterus. Normal fallopian tubes and ovaries were appreciated. Patient's postoperative course has been essentially uncomplicated. Patient is doing well on this postoperative day #2. She is ambulating and voiding without difficulty. Her pain is well-controlled with Oxy IR and ibuprofen. She is passing flatus. She is tolerating a regular diet without nausea or vomiting. She would like discharge home. Patient Condition at Discharge: Good Plan - Discharge Summary New Discharge Prescriptions: No Action Aspirin [Adult Low Dose Aspirin EC] 81 mg PO DAILY Vit No.179/Iron/Folic [ Tablet] 1 each PO DAILY Labetalol [Trandate] 100 mg PO BID Discharge Medication List Aspirin [Adult Low Dose Aspirin EC] 81 mg PO DAILY 01/01/24 [History] Vit No.179/Iron/Folic [ Tablet] 1 each PO DAILY 01/01/24 [History] Follow up Appointment(s)/Referral(s): Sarita Peralta MD [STAFF PHYSICIAN] - 03/07/24 1:15 pm (Post Appointment 04-02-2024 at 11:30am) Patient Instructions/Handouts: (DC), (GEN) Activity/Diet/Wound Care/Special Instructions: No tub baths or intercourse until 6 weeks postoperatively. [id number] ibuprofen 600 mg or 3 tablets every 6 hours as needed for pain. In addition she has a prescription for Oxy IR 5 mg to be taken 1 every 6 hours as needed for pain. Patient is to call the office for routine postoperative visit in 2 weeks. Should she have any concerns prior to this appointment she is urged to call the office. Discharge Disposition: HOME SELF-CARE
== END 2024-02-24 15:45 | disposition home or self-care (01) | DRG 784 ==
LOC: 4FBP 10:25
PROVIDERS: ADMIT Obstetrics & Gynecology; ATTEND Obstetrics & Gynecology
PROC: 0UB70ZZ Excision of Bilateral Fallopian Tubes, Open Approach (ICD-10-PCS; 2024-02-22)
PROC: 10D00Z1 Extraction of Products of Conception, Low, Open Approach (ICD-10-PCS; principal; 2024-02-22 12:00)
DX: O34.211 Maternal care for low transverse scar from previous cesarean delivery (principal); O99.354 Diseases of the nervous system complicating childbirth; O99.02 Anemia complicating childbirth; O24.420 Gestational diabetes mellitus in childbirth, diet controlled; O36.5930 Maternal care for other known or suspected poor fetal growth, third trimester, not applicable or unspecified; O14.14 Severe pre-eclampsia complicating childbirth; Z37.0 Single live birth; Z3A.37 37 weeks gestation of pregnancy; Z30.2 Encounter for sterilization; Z79.82 Long term (current) use of aspirin; Z82.49 Family history of ischemic heart disease and other diseases of the circulatory system; G43.909 Migraine, unspecified, not intractable, without status migrainosus; Z88.8 Allergy status to other drugs, medicaments and biological substances
CPT/HCPCS: 85025; 86850; 86900; 86901